=== PATIENT | female | born 1960 | race Asian ===

== ENCOUNTER 2020-12-04 10:10 | Outpatient (REF) | payer OTHER, SELFPAY ==
[2020-12-04 11:45] LABS: MANUAL DIFF FLAG NO
[2020-12-04 12:10] LABS: Basophils Percent Auto 0.7 % (0-2); Eosinophils Absolute Auto 0.3 X10*3/uL (0.0-0.4); Eosinophils Percent Auto 5.8 % (0-4); Hematocrit 42.5 % (37-47); Hemoglobin 14.2 g/dl (12.0-16.0); Imm Gran Abs Auto 0.01 X10*3/uL (0.00-0.03); Imm Gran Pct Auto 0.2 % (0.0-0.4); Lymphocytes Absolute Auto 2.1 X10*3/uL (1.2-4.9); Lymphocytes Percent Auto 37.3 % (20-40); Mean Corpuscular HGB Conc 33.4 g/dl (31.0-35.0); Mean Corpuscular Hemoglobin 30.3 pg (27.0-33.0); Mean Corpuscular Volume 90.6 fL (80-98); Monocytes Absolute Auto 0.4 X10*3/uL (0.1-1.2); Monocytes Percent Auto 7.3 % (2-11); Neutrophils Absolute Auto 2.8 X10*3/uL (2.0-8.3); Neutrophils Percent Auto 48.7 % (45-73); Platelet Count 208 X10*3/uL (160-400); Red Blood Count 4.69 X10*6/uL (4.20-5.50); Red Cell Distribution Width 12.8 % (11.0-16.0); White Blood Count 5.7 X10*3/uL (4.8-10.8)
[2020-12-04 12:20] LABS: Alanine Aminotransferase 52 U/L (0-31); Albumin Level 4.3 g/dL (3.5-5.0); Alkaline Phosphatase 71 U/L (39-117); Anion Gap 11 (12-20); Aspartate Amino Transferase 37 U/L (5-31); Bilirubin Total 1.2 mg/dL (0.0-1.0); Blood Urea Nitrogen 8 mg/dL (9-16); Calcium 10.2 mg/dL (8.4-10.2); Carbon Dioxide 30 mmol/L (22-29); Chloride 105 mmol/L (96-108); Cholesterol 243 mg/dL; Estimated Glomerular Filt Rate > 60; Glucose Fasting 107 mg/dL (60-99); HDL Cholesterol 55 mg/dL; LDL Cholesterol Calculated 165 mg/dl; Potassium 4.2 mmol/L (3.3-5.1); Sodium 142 mmol/L (135-145); Total Protein 6.9 g/dL (6.5-8.0); Triglycerides 119 mg/dL
[2020-12-04 12:30] LABS: TSH reflex Free T4 2.63 uIU/mL (0.32-4.0)
[2020-12-08 21:02] LABS: Vitamin D 25-OH, D2 <4 ng/mL; Vitamin D 25-OH, D3 36 ng/mL; Vitamin D 25-OH, Total 36 ng/mL (30-100)
== END 2020-12-04 10:11 | disposition home or self-care (01) ==
LOC: HO.HMGCLDS 10:10
PROVIDERS: PCP Internal Medicine; Visit Provider Internal Medicine
DX: E55.9 Vitamin D deficiency, unspecified (principal); K21.9 Gastro-esophageal reflux disease without esophagitis; E03.8 Other specified hypothyroidism
CPT/HCPCS: 36415; 80053; 80061; 82306; 84443; 85025

== ENCOUNTER 2021-07-07 11:09 | Outpatient (REF) | payer OTHER, SELFPAY ==
[2021-07-07 14:29] LABS: Estimated Average Glucose 117 mg/dL; Hemoglobin A1C 148.3447 umol/L; Hemoglobin A1c % 5.7 %
[2021-07-07 14:30] LABS: Alanine Aminotransferase 23 U/L (0-31); Albumin Level 4.2 g/dL (3.5-5.0); Alkaline Phosphatase 60 U/L (39-117); Anion Gap 10 (12-20); Aspartate Amino Transferase 17 U/L (5-31); Bilirubin Total 0.9 mg/dL (0.0-1.0); Blood Urea Nitrogen 20 mg/dL (9-16); Calcium 10.3 mg/dL (8.4-10.2); Carbon Dioxide 31 mmol/L (22-29); Chloride 105 mmol/L (96-108); Cholesterol 277 mg/dL; Estimated Glomerular Filt Rate > 60; Glucose Fasting 96 mg/dL (60-99); HDL Cholesterol 55 mg/dL; LDL Cholesterol Calculated 186 mg/dl; Potassium 3.8 mmol/L (3.3-5.1); Sodium 142 mmol/L (135-145); Total Protein 6.9 g/dL (6.5-8.0); Triglycerides 180 mg/dL
[2021-07-07 14:54] LABS: TSH reflex Free T4 0.96 uIU/mL (0.32-4.0)
[2021-07-11 12:46] LABS: Vitamin D 25-OH, D2 <4 ng/mL; Vitamin D 25-OH, D3 31 ng/mL; Vitamin D 25-OH, Total 31 ng/mL (30-100)
== END 2021-07-07 11:10 | disposition home or self-care (01) ==
LOC: HO.HMGCLDS 11:09
PROVIDERS: PCP Internal Medicine; Visit Provider Internal Medicine
DX: E03.8 Other specified hypothyroidism (principal); E78.9 Disorder of lipoprotein metabolism, unspecified; K21.9 Gastro-esophageal reflux disease without esophagitis; R73.03 Prediabetes; R79.89 Other specified abnormal findings of blood chemistry; E55.9 Vitamin D deficiency, unspecified
CPT/HCPCS: 36415; 80053; 80061; 82306; 83036; 84443

== ENCOUNTER 2022-02-15 10:38 | Outpatient (REF) | payer OTHER, SELFPAY ==
[2022-02-15 12:25] LABS: Alanine Aminotransferase 26 U/L (0-31); Albumin Level 4.3 g/dL (3.5-5.0); Alkaline Phosphatase 60 U/L (39-117); Anion Gap 15 (12-20); Aspartate Amino Transferase 21 U/L (5-31); Bilirubin Total 1.3 mg/dL (0.0-1.0); Blood Urea Nitrogen 22 mg/dL (9-16); Calcium 9.7 mg/dL (8.4-10.2); Carbon Dioxide 27 mmol/L (22-29); Chloride 104 mmol/L (96-108); Cholesterol 275 mg/dL; Estimated Glomerular Filt Rate > 60; Glucose Fasting 107 mg/dL (60-99); HDL Cholesterol 60 mg/dL; LDL Cholesterol Calculated 195 mg/dl; Potassium 3.8 mmol/L (3.3-5.1); Sodium 142 mmol/L (135-145); Total Protein 6.8 g/dL (6.5-8.0); Triglycerides 102 mg/dL
[2022-02-15 12:45] LABS: TSH reflex Free T4 1.28 uIU/mL (0.32-4.0)
== END 2022-02-15 10:39 | disposition home or self-care (01) ==
LOC: HO.HMGCLDS 10:38
PROVIDERS: PCP Internal Medicine; Visit Provider Internal Medicine
DX: E03.8 Other specified hypothyroidism (principal); E78.9 Disorder of lipoprotein metabolism, unspecified; E66.09 Other obesity due to excess calories; R79.89 Other specified abnormal findings of blood chemistry; R73.03 Prediabetes
CPT/HCPCS: 36415; 80053; 80061; 84443

== ENCOUNTER 2022-03-30 07:50 | Outpatient (REF) | payer OTHER, SELFPAY | END 2022-03-30 07:51 | disposition home or self-care (01) | LOC: HO.HOSX 07:50 | PROVIDERS: Visit Provider Physician Assistant | DX: Z13.89 Encounter for screening for other disorder (principal) ==

== ENCOUNTER 2022-04-15 10:11 | Outpatient (REF) | payer OTHER, SELFPAY ==
[2022-04-15 15:19] LABS: Estimated Average Glucose 117 mg/dL; Hemoglobin A1c % 5.7 %
[2022-04-15 15:32] LABS: Alanine Aminotransferase 26 U/L (0-31); Albumin Level 4.3 g/dL (3.5-5.0); Alkaline Phosphatase 59 U/L (39-117); Aspartate Amino Transferase 19 U/L (5-31); Bilirubin Direct 0.6 mg/dL (0.0-0.5); Bilirubin Total 1.5 mg/dL (0.0-1.0); Cholesterol 144 mg/dL; HDL Cholesterol 53 mg/dL; LDL Cholesterol Calculated 74 mg/dl; Total Protein 6.7 g/dL (6.5-8.0); Triglycerides 86 mg/dL
== END 2022-04-15 10:12 | disposition home or self-care (01) ==
LOC: HO.HMGCLDS 10:11
PROVIDERS: PCP Internal Medicine; Visit Provider Internal Medicine
DX: R78.9 Finding of unspecified substance, not normally found in blood (principal); R73.03 Prediabetes
CPT/HCPCS: 36415; 80061; 80076; 83036

== ENCOUNTER 2022-10-14 10:19 | Outpatient (REF) | payer OTHER, SELFPAY ==
[2022-10-14 12:10] LABS: Estimated Average Glucose 123 mg/dL; Hemoglobin A1C 149.8522 umol/L; Hemoglobin A1c % 5.9 %
[2022-10-14 12:44] LABS: Alanine Aminotransferase 26 U/L (0-31); Alkaline Phosphatase 61 U/L (39-117); Anion Gap 11 (12-20); Aspartate Amino Transferase 17 U/L (5-31); Blood Urea Nitrogen 19 mg/dL (9-16); Calcium 9.6 mg/dL (8.4-10.2); Carbon Dioxide 28 mmol/L (22-29); Chloride 108 mmol/L (96-108); Cholesterol 173 mg/dL; Estimated Glomerular Filt Rate > 60; Glucose Fasting 92 mg/dL (60-99); HDL Cholesterol 60 mg/dL; LDL Cholesterol Calculated 93 mg/dl; Sodium 143 mmol/L (135-145); TSH reflex Free T4 1.08 uIU/mL (0.32-4.0); Total Protein 6.3 g/dL (6.5-8.0); Triglycerides 102 mg/dL
[2022-10-14 13:02] LABS: Bilirubin Total 1.5 mg/dL (0.0-1.0)
== END 2022-10-14 10:20 | disposition home or self-care (01) ==
LOC: HO.HMGCLDS 10:19
PROVIDERS: PCP Internal Medicine; Visit Provider Internal Medicine
DX: E03.8 Other specified hypothyroidism (principal); K21.9 Gastro-esophageal reflux disease without esophagitis; M25.561 Pain in right knee; M25.562 Pain in left knee; R79.89 Other specified abnormal findings of blood chemistry; E78.9 Disorder of lipoprotein metabolism, unspecified; R73.03 Prediabetes; E66.09 Other obesity due to excess calories
CPT/HCPCS: 36415; 80053; 80061; 83036; 84443

== ENCOUNTER 2023-01-14 13:00 | Outpatient (AMB) | payer OTHER, SELFPAY ==
[2023-01-14 13:01] VITALS: BP 110/58; PULSE 93; O2SAT 95; BMI 41.5
--- NOTE | 2023-01-14 13:01 | MHC.PC.OV ---
Vital Signs 01/14/23 13:01 Height 5 ft 2 in Weight 227 lb BMI 41.5 BP 110/58 L Blood Pressure Location Rt brachial Position Sitting Pulse 93 Pulse Source Pulse Oximeter Pulse Oximetry (%) 95 Oxygen Delivery Method Room Air Intake Visit Reasons: 3m follow up Allergies No Known Allergies [No Known Allergies*] Allergy (Verified 01/14/23 13:02) Medication List - Last Reconciled 01/14/23 by Brielle Alfaro MD atorvastatin 40 mg PO DAILY 90 days betamethasone dipropionate 0.05% 1 appl topical DAILY 90 days cholecalciferol (vitamin D3) 50 mcg PO DAILY diclofenac sodium 3% 1 appl topical BID 30 days hydrocortisone 2.5% 1 appl topical BID PRN levothyroxine 100 mcg PO DAILY 90 days Tobacco use date assessed: 01/14/23 Dental Screening Dental Screen Date: 01/14/23 Did you have a dental visit in the last 12 months?: No Did you have a dental problem in the last 6 months where you did not have access to dental care?: No Was dental information given to patient?: No HPI 3m follow up HPI Details Patient is a 62-year-old female came in today for her regular follow-up appointment Patient had shingles recently she is still recovering, was evaluated walk-in clinic and was treated with medication Lipid disorder: Patient continued to take atorvastatin 40 mg lipids are well controlled due for labs Hypothyroidism: Continue levothyroxine 100 mcg. TSH is within normal limit Bilateral knee osteoarthritis: Ibuprofen as needed or Tylenol, patient is using diclofenac 3% local rub which is helping her Continue vitamin-D supplement as well. GERD is stable with diet-controlled Eczema controlled with betamethasone cream She is complaining of pain in her right foot and is requesting appointment with the certified surgical tech/first assistant Patient has gained more weight, diet and exercise discussed Follow-up 3 months, [facility] Social History Housing: House Patient Tobacco Use Status: Never used Tobacco e-Cigarette/Vaping Use: Never Used Current occupational status: unemployed Cognitive needs: No Hearing needs: No Vision needs: No Questionnaire Thrive Questionnaire Date Thrive assessed: 07/07/21 AUDIT C Alcohol Use Questionnaire (AUDIT-C) 1. How often do you have a drink containing alcohol?: Never 3. How often do you have six or more drinks on one occasion?: Never Total Score: 0 Score Reviewed/Action Taken: Yes MARGARITO-7 AMB Questionnaire MARGARITO-7 Date MARGARITO - 7 assessed: 07/07/21 Source: Developed by Drs. Shahzad Millan, Jaimee Shetty, Dominick Pedraza and colleagues, with an educational nic from [employer]. Review of Systems Const Denies chills and Denies fever(s) ENT Denies epistaxis and Denies nasal discharge Card Denies chest pain Resp Denies chest congestion, Denies cough and Denies hemoptysis GI Denies diarrhea and Denies nausea Skin/Breast Denies rash Neuro Reports no additional complaints Psych Reports no additional complaints Endo Reports no additional complaints Physical exam (Primary Care) Vital Signs: Last Vital Signs Pulse 93 01/14/23 13:01 BP 110/58 L 01/14/23 13:01 Pulse Ox 95 01/14/23 13:01 Oxygen Delivery Method Room Air 01/14/23 13:01 BMI result Body Mass Index 41.5 Tobacco/Smoking Status: Tobacco use Status Tobacco use date assessed 01/14/23 01/14/23 13:06 Patient Tobacco Use Status Never used Tobacco 01/14/23 13:06 e-Cigarette/Vaping Use Never Used 01/14/23 13:06 Thrive Assessment: Date of Thrive Assessment Date Thrive assessed 07/07/21 01/14/23 13:06 Const General: cooperative, comfortable and no acute distress Orientation/consciousness: patient oriented x3 HENMT Head: Yes normocephalic Eyes General: appearance normal, both eyes and all related structures Neck Neck: Yes supple Resp Effort & Inspection: normal respiratory effort, no cough and no stridor Cardio Rhythm: regular rhythm Heart sounds: S1 normal heart sound present and S2 normal heart sound present Skin Other: Shingles rash resolving left side of upper chest General skin exam: turgor normal Neuro General: patient oriented x3, tone normal and moves all extremities Extrem Right lower extremity: no edema Left lower extremity: no edema Assessment and Plan Assessment & Plan (1) Other specified hypothyroidism: Code(s): E03.8 - Other specified hypothyroidism (2) Chronic GERD: Code(s): K21.9 - Gastro-esophageal reflux disease without esophagitis (3) Vitamin D deficiency: Code(s): E55.9 - Vitamin D deficiency, unspecified (4) Knee pain, bilateral: Code(s): M25.561 - Pain in right knee; M25.562 - Pain in left knee (5) LFT elevation: Code(s): R79.89 - Other specified abnormal findings of blood chemistry (6) Pre-diabetes: Code(s): R73.03 - Prediabetes (7) Lipid disorder: Code(s): E78.9 - Disorder of lipoprotein metabolism, unspecified (8) Obesity due to excess calories: Code(s): E66.09 - Other obesity due to excess calories (9) Foot pain, right: Code(s): M79.671 - Pain in right foot (10) Herpes zoster: Code(s): B02.9 - Zoster without complications Plan Patient is a 62-year-old female came in today for her regular follow-up appointment Patient had shingles recently she is still recovering, was evaluated walk-in clinic and was treated with medication Lipid disorder: Patient continued to take atorvastatin 40 mg lipids are well controlled due for labs Hypothyroidism: Continue levothyroxine 100 mcg. TSH is within normal limit Bilateral knee osteoarthritis: Ibuprofen as needed or Tylenol, patient is using diclofenac 3% local rub which is helping her Continue vitamin-D supplement as well. GERD is stable with diet-controlled Eczema controlled with betamethasone cream She is complaining of pain in her right foot and is requesting appointment with the certified surgical tech/first assistant Patient has gained more weight, diet and exercise discussed Follow-up 3 months Orders: Orders Comprehensive [place]. Panel Fast Today E03.8 - Other specified hypothyroidism, E55.9 - Vitamin D deficiency, unspecified, E66.09 - Other obesity due to excess calories, E78.9 - Disorder of lipoprotein metabolism, unspecified, K21.9 - Gastro-esophageal reflux disease without esophagitis, M25.561 - Pain in right knee, M25.562 - Pain in left knee, R73.03 - Prediabetes, R79.89 - Other specified abnormal findings of blood chemistry Lipid Panel Today E03.8 - Other specified hypothyroidism, E55.9 - Vitamin D deficiency, unspecified, E66.09 - Other obesity due to excess calories, E78.9 - Disorder of lipoprotein metabolism, unspecified, K21.9 - Gastro-esophageal reflux disease without esophagitis, M25.561 - Pain in right knee, M25.562 - Pain in left knee, R73.03 - Prediabetes, R79.89 - Other specified abnormal findings of blood chemistry TSH reflex Free T4 Today E03.8 - Other specified hypothyroidism, E55.9 - Vitamin D deficiency, unspecified, E66.09 - Other obesity due to excess calories, E78.9 - Disorder of lipoprotein metabolism, unspecified, K21.9 - Gastro-esophageal reflux disease without esophagitis, M25.561 - Pain in right knee, M25.562 - Pain in left knee, R73.03 - Prediabetes, R79.89 - Other specified abnormal findings of blood chemistry Complete Blood Count Auto Diff Today E03.8 - Other specified hypothyroidism, E55.9 - Vitamin D deficiency, unspecified, E66.09 - Other obesity due to excess calories, E78.9 - Disorder of lipoprotein metabolism, unspecified, K21.9 - Gastro-esophageal reflux disease without esophagitis, M25.561 - Pain in right knee, M25.562 - Pain in left knee, R73.03 - Prediabetes, R79.89 - Other specified abnormal findings of blood chemistry Referrals Podiatry Referral M79.671 - Pain in right foot Medications: Refilled levothyroxine 100 mcg PO DAILY 90 days 90 tabs 1RF betamethasone dipropionate 0.05% 1 appl topical DAILY 90 days 45 grams 2RF atorvastatin 40 mg PO DAILY 90 days 90 tabs 1RF cholecalciferol (vitamin D3) 50 mcg PO DAILY 90 caps 1RF diclofenac sodium 3% 1 appl topical BID 30 days 200 grams 5RF Coding Level of Care Code Est Pt Level 4 (63022) Diagnoses Other specified hypothyroidism E03.8 Chronic GERD K21.9 Vitamin D deficiency E55.9 Knee pain, bilateral M25.561; M25.562 LFT elevation R79.89 Pre-diabetes R73.03 Lipid disorder E78.9 Obesity due to excess calories E66.09 Foot pain, right M79.671 Herpes zoster B02.9
== END 2023-01-14 14:20 | disposition home or self-care (01) ==
PROVIDERS: Visit Provider Internal Medicine
DX: E03.8 Other specified hypothyroidism (principal); K21.9 Gastro-esophageal reflux disease without esophagitis; E66.09 Other obesity due to excess calories; Z68.41 Body mass index [BMI] 40.0-44.9, adult; E55.9 Vitamin D deficiency, unspecified; M25.561 Pain in right knee; M25.562 Pain in left knee; R79.89 Other specified abnormal findings of blood chemistry; R73.03 Prediabetes; E78.9 Disorder of lipoprotein metabolism, unspecified; M79.671 Pain in right foot; B02.9 Zoster without complications
CPT/HCPCS: 99214

== ENCOUNTER 2023-04-19 11:29 | Outpatient (REF) | payer OTHER, SELFPAY ==
[2023-04-19 13:40] LABS: MANUAL DIFF FLAG NO
[2023-04-19 13:53] LABS: Basophils Percent Auto 0.8 % (0-2); Eosinophils Absolute Auto 0.3 X10*3/uL (0.0-0.4); Eosinophils Percent Auto 6.4 % (0-4); Hematocrit 42.6 % (37.0-47.0); Hemoglobin 13.8 g/dl (12.0-16.0); Imm Gran Abs Auto 0.01 X10*3/uL (0.00-0.03); Imm Gran Pct Auto 0.2 % (0.0-0.4); Lymphocytes Absolute Auto 1.8 X10*3/uL (1.2-4.9); Lymphocytes Percent Auto 35.2 % (20-40); Mean Corpuscular HGB Conc 32.4 g/dl (31.0-35.0); Mean Corpuscular Hemoglobin 29.9 pg (27.0-33.0); Mean Corpuscular Volume 92.2 fL (80.0-98.0); Mean Platelet Volume 10.7 fL (9.4-12.3); Monocytes Absolute Auto 0.4 X10*3/uL (0.1-1.2); Monocytes Percent Auto 7.8 % (2-11); Neutrophils Absolute Auto 2.5 x10*3/uL (2.0-8.3); Neutrophils Percent Auto 49.6 % (45-73); Platelet Count 186 X10*3/uL (160-400); Red Blood Count 4.62 X10*6/uL (4.20-5.50); Red Cell Distribution Width 12.8 % (11.0-16.0)
[2023-04-19 14:15] LABS: Anion Gap 14 (12-20)
[2023-04-19 14:21] LABS: Alanine Aminotransferase 24 U/L (0-31); Albumin Level 4.2 g/dL (3.5-5.0); Alkaline Phosphatase 64 U/L (39-117); Aspartate Amino Transferase 22 U/L (5-31); Bilirubin Total 1.5 mg/dL (0.0-1.0); Blood Urea Nitrogen 12 mg/dL (9-16); Calcium 10.3 mg/dL (8.4-10.2); Carbon Dioxide 27 mmol/L (22-29); Chloride 105 mmol/L (96-108); Cholesterol 169 mg/dL (<200); Estimated Glomerular Filt Rate > 60; Glucose Fasting 100 mg/dL (60-99); HDL Cholesterol 48 mg/dL (>40); LDL Cholesterol Calculated 85 mg/dL (<100); Potassium 3.7 mmol/L (3.3-5.1); Sodium 142 mmol/L (135-145); Total Protein 6.9 g/dL (6.5-8.0); Triglycerides 180 mg/dL (<150)
[2023-04-19 14:29] LABS: TSH reflex Free T4 4.17 uIU/mL (0.32-4.0)
[2023-04-19 15:01] LABS: Free T4 (Free Thyroxine) 1.03 ng/dL (0.71-1.85)
== END 2023-04-19 11:30 | disposition home or self-care (01) ==
LOC: HO.HMGCLDS 11:29
PROVIDERS: PCP Internal Medicine; Visit Provider Internal Medicine
DX: E03.8 Other specified hypothyroidism (principal); K21.9 Gastro-esophageal reflux disease without esophagitis; E55.9 Vitamin D deficiency, unspecified; M25.561 Pain in right knee; M25.562 Pain in left knee; R79.89 Other specified abnormal findings of blood chemistry; R73.03 Prediabetes; E78.9 Disorder of lipoprotein metabolism, unspecified; E66.09 Other obesity due to excess calories
CPT/HCPCS: 36415; 80053; 80061; 84439; 84443; 85025

== ENCOUNTER 2023-04-20 09:23 | Outpatient (AMB) | payer OTHER, SELFPAY ==
[2023-04-20 09:28] VITALS: BP 124/76; PULSE 81; O2SAT 97; BMI 41.7
--- NOTE | 2023-04-20 09:28 | A.OFFPC_ITS ---
Vital Signs 04/20/23 09:28 Height 5 ft 2 in Weight 228 lb 4 oz BMI 41.7 BP 124/76 Blood Pressure Location Lt brachial Position Sitting Pulse 81 Pulse Source Pulse Oximeter Pulse Oximetry (%) 97 Oxygen Delivery Method Room Air Intake Visit Reasons: PE Allergies No Known Allergies [No Known Allergies*] Allergy (Verified 04/20/23 09:30) Medication List - Last Reconciled 04/20/23 by Brielle Alfaro MD atorvastatin 40 mg PO DAILY 90 days betamethasone dipropionate 0.05% 1 appl topical DAILY 90 days cholecalciferol (vitamin D3) 50 mcg PO DAILY diclofenac sodium 3% 1 appl topical BID 30 days hydrocortisone 2.5% 1 appl topical BID PRN levothyroxine 100 mcg PO DAILY 90 days Tobacco use date assessed: 04/20/23 Dental Screening Dental Screen Date: 04/20/23 Did you have a dental visit in the last 12 months?: No Did you have a dental problem in the last 6 months where you did not have access to dental care?: No Was dental information given to patient?: Patient has dentist HPI PE HPI Details Patient is a 62-year-old female came in today for her physical exam Mammogram is due order placed Patient declined colonoscopy Declined OBGYN visit and Pap smear Patient is complaining of memory issues has started to forget small things. Her daughter is here with the patient who also has noticed there is some changes. I have book appointment with the neurologist for further evaluation Lipid disorder: Continue atorvastatin 40 mg Hypothyroidism: Continue levothyroxine 100 mcg. TSH is slightly elevated, patie nt says that she is taking [id number] remedy for thyroid she will stop taking that and we will recheck it again in 3 months Bilateral knee osteoarthritis: Ibuprofen as needed or Tylenol, patient is using diclofenac 3% local rub which is helping her Continue vitamin-D supplement as well. GERD is stable with diet-controlled Eczema controlled with betamethasone cream Morbid obesity with BMI of 41.7 patient is having difficulty losing weight [facility] Social History Housing: House Patient Tobacco Use Status: Never used Tobacco e-Cigarette/Vaping Use: Never Used Current occupational status: unemployed Cognitive needs: No Hearing needs: No Vision needs: No Questionnaire PHQ-9 Over the last 2 weeks, how often have you been bothered by any of the following problems? 1. Little interest or pleasure in doing things: several days 2. Feeling down, depressed, or hopeless: several days 3. Trouble falling or staying asleep, or sleeping too much: several days 4. Feeling tired or having little energy: several days 5. Poor appetite or overeating: several days 6. Feeling bad about yourself - or that you are a failure or have let yourself or your family down: several days 7. Trouble concentrating on things, such as reading the newspaper or watching television: nearly every day 8. Moving or speaking so slowly that other people could have noticed. Or the o pposite - being so fidgety or restless that you have been moving around a lot more than usual: not at all 9. Thoughts that you would be better off or of hurting yourself in some way: not at all Total score: 9 Depression Screening Interpretation: Negative Depression Screening Done: Yes 28447 - PHQ-9 Billing: Yes Source: Developed by Drs. Shahzad Millan, Jaimee Shetty, Dominick Pedraza and colleagues, with an educational nic from [employer]. Thrive Questionnaire Date Thrive assessed: 04/20/23 I am a: Patient What is your living situation today?: I have a steady place to live Within the past 12 months, did the food you bought not last and you didn't have the money to get more?: Never true Within the past 12 months, did you worry whether your food would run out before you got money to buy more?: Never true Do you have trouble paying for medicines?: No Do you have trouble getting transportation to medical appointments?: No Do you have trouble paying your heating and electricity bill?: No Do you have trouble taking care of your child, family member or friend?: No Do you have trouble with day-to-day activities such as bathing, preparing meals, shopping, managing finances, etc.?: Yes Are you currently unemployed and looking for a job?: No Are you interested in more education?: Yes AUDIT C Alcohol Use Questionnaire (AUDIT-C) 1. How often do you have a drink containing alcohol?: Never 3. How often do you have six or more drinks on one occasion?: Never Total Score: 0 Score Reviewed/Action Taken: Yes MARGARITO-7 AMB Questionnaire MARGARITO-7 Date MARGARITO - 7 assessed: 04/20/23 Feeling nervous, anxious, or on edge: 0 = Not at all Not being able to stop or control worryin = Several days Worrying too much about different things: 1 = Several days Trouble relaxin = Not at all Being so restless that it is hard to sit still: 0 = Not at all Becoming easily annoyed or irritable: 0 = Not at all Feeling afraid as if something awful might happen: 0 = Not at all Total MARGARITO-7 score (0-4 normal; 5-9 mild; 10-14 moderate; 15-21 severe): 2 Source: Developed by Drs. Shahzad Millan, Jaimee Shetty, Dominick Pedraza and colleagues, with an educational nic from [employer]. MARGARITO-7 Assessment Billing MARGARITO-7 Assessment Tool: MARGARITO-7 Assessment [id number] Review of Systems Const Denies chills, Denies fever(s) and Denies headache(s) Eyes Denies blurry vision ENT Denies headache(s), Denies nasal discharge, Denies nasal obstruction, Denies odynophagia and Denies sinus pain Card Denies chest pain at rest and Denies chest pain with activity Resp Denies cough and Denies hemoptysis GI Denies diarrhea, Denies odynophagia, Denies vomiting and Denies hematemesis Reports as per HPI Musc Denies abnormal gait Skin/Breast Reports as per HPI Neuro Denies Neuro-related abnormal movements, Denies Abnormal speech present, Denies abnormal gait, Denies headache(s) and Denies Sensory deficit (Neuro) Psych Denies mood swings and Denies paranoia Endo Reports as per HPI Uriah/Lymph Reports as per HPI Aller/Immun Reports as per HPI Physical exam (Primary Care) Vital Signs: Last Vital Signs Pulse 81 04/20/23 09:28 BP 124/76 04/20/23 09:28 Pulse Ox 97 04/20/23 09:28 Oxygen Delivery Method Room Air 04/20/23 09:28 BMI result Body Mass Index 41.7 Tobacco/Smoking Status: Tobacco use Status Tobacco use date assessed 04/20/23 04/20/23 09:31 Patient Tobacco Use Status Never used Tobacco 04/20/23 09:31 e-Cigarette/Vaping Use Never Used 04/20/23 09:31 PHQ-9: PHQ-9 Score PHQ-9: Total score 9 04/20/23 09:57 Depression Screening Interpretation: Negative Thrive Assessment: Date of Thrive Assessment Date Thrive assessed 04/20/23 04/20/23 09:57 Const General: cooperative, comfortable and no acute distress Orientation/consciousness: patient oriented x3 HENMT Head: Yes normocephalic and Yes atraumatic Eyes General: appearance normal, both eyes and all related structures Pupils: Equal, round and reactive pupils present EOM: EOMs intact bilaterally Neck Neck: Yes supple and No lymphadenopathy Thyroid: Thyroid normal Lymphatic: no lymphadenopathy noted Chest Breast/axilla palpation: normal palpation of the breasts Resp Effort & Inspection: normal respiratory effort and able to speak in complete sentences Auscultation: clear to auscultation bilaterally Cardio Heart sounds: S1 normal heart sound present and S2 normal heart sound present GI Palpation (GI): Soft to palpation and nontender Auscultation: normal bowel sounds General: Yes no CVA tenderness Back/Spine/Pelvis Back: no CVA tenderness Skin General skin exam: elasticity normal and turgor normal Neuro General: patient oriented x3 and gait normal Cranial nerves: Yes Equal, round and reactive pupils present Speech: No Abnormal speech present Sensory Exam: No Sensory deficit (Neuro) Coordination: Romberg test negative Extrem General: Yes normal exam except as noted and No edema Assessment and Plan Assessment & Plan (1) Encounter for general adult medical examination with abnormal findings: Code(s): Z00.01 - Encounter for general adult medical examination with abnormal findings (2) Lipid disorder: Code(s): E78.9 - Disorder of lipoprotein metabolism, unspecified (3) Pre-diabetes: Code(s): R73.03 - Prediabetes (4) Chronic GERD: Code(s): K21.9 - Gastro-esophageal reflux disease without esophagitis (5) Other specified hypothyroidism: Code(s): E03.8 - Other specified hypothyroidism (6) Morbid obesity due to excess calories: Code(s): E66.01 - Morbid (severe) obesity due to excess calories (7) Memory changes: Code(s): R41.3 - Other amnesia Plan Patient is a 62-year-old female came in today for her physical exam Mammogram is due order placed Patient declined colonoscopy Declined OBGYN visit and Pap smear Patient is complaining of memory issues has started to forget small things. Her daughter is here with the patient who also has noticed there is some changes. I have book appointment with the neurologist for further evaluation Lipid disorder: Continue atorvastatin 40 mg Hypothyroidism: Continue levothyroxine 100 mcg. TSH is slightly elevated, patient says that she is taking vtri-anq-[id number] remedy for thyroid she will stop taking that and we will recheck it again in 3 months Bilateral knee osteoarthritis: Ibuprofen as needed or Tylenol, patient is using diclofenac 3% local rub which is helping her Continue vitamin-D supplement as well. GERD is stable with diet-controlled Eczema controlled with betamethasone cream Morbid obesity with BMI of 41.7 patient is having difficulty losing weight Orders: Orders TSH reflex Free T4 3 Months E03.8 - Other specified hypothyroidism, E66.01 - Morbid (severe) obesity due to excess calories, E78.9 - Disorder of lipoprotein metabolism, unspecified, K21.9 - Gastro-esophageal reflux disease without esophagitis, R73.03 - Prediabetes Hemoglobin A1c Today E03.8 - Other specified hypothyroidism, E66.01 - Morbid (severe) obesity due to excess calories, E78.9 - Disorder of lipoprotein metabolism, unspecified, K21.9 - Gastro-esophageal reflux disease without esophagitis, R73.03 - Prediabetes Comprehensive Met. Panel Today E03.8 - Other specified hypothyroidism, E66.01 - Morbid (severe) obesity due to excess calories, E78.9 - Disorder of lipoprotein metabolism, unspecified, K21.9 - Gastro-esophageal reflux disease without esophagitis, R73.03 - Prediabetes LDL Cholesterol Direct Today E03.8 - Other specified hypothyroidism, E66.01 - Morbid (severe) obesity due to excess calories, E78.9 - Disorder of lipoprotein metabolism, unspecified, K21.9 - Gastro-esophageal reflux disease without esophagitis, R73.03 - Prediabetes MM tomosynthesis screening BI Today Z12.31 - Encounter for screening mammogram for malignant neoplasm of breast Referrals Neurology Referral R41.3 - Other amnesia Medications: Refilled diclofenac sodium 3% 1 appl topical BID 200 grams 5RF 30 days hydrocortisone 2.5% 1 appl topical BID PRN 20 grams 6RF skin irritation Coding Level of Care Code Est Pt Prev Care 40-64y(81283) Diagnoses Encounter for general adult medical examination with abnormal findings Z00.01 Lipid disorder E78.9 Pre-diabetes R73.03 Chronic GERD K21.9 Other specified hypothyroidism E03.8 Morbid obesity due to excess calories E66.01 Memory changes R41.3 Additional Codes MARGARITO-7 Assessment Billing - MARGARITO-7 Assessment Tool: MARGARITO-7 Assessment [id number] ([id number])
== END 2023-04-20 10:00 | disposition home or self-care (01) ==
PROVIDERS: PCP Internal Medicine; Visit Provider Internal Medicine
DX: Z00.00 Encounter for general adult medical examination without abnormal findings (principal); E66.01 Morbid (severe) obesity due to excess calories; Z68.41 Body mass index [BMI] 40.0-44.9, adult; E78.9 Disorder of lipoprotein metabolism, unspecified; R73.03 Prediabetes; K21.9 Gastro-esophageal reflux disease without esophagitis; E03.8 Other specified hypothyroidism; R41.3 Other amnesia
CPT/HCPCS: 99396

== ENCOUNTER 2023-08-24 13:51 | Outpatient (AMB) | payer OTHER, SELFPAY ==
[2023-08-24 13:53] VITALS: BP 106/50; PULSE 96; O2SAT 95; BMI 41.9
--- NOTE | 2023-08-24 13:53 | A.OFFPC_ITS ---
Vital Signs 3 08/24/23 13:53 Height 5 ft 2 in Weight 229 lb BMI 41.9 BP 106/50 L Blood Pressure Location Rt brachial Position Sitting Pulse 96 Pulse Source Pulse Oximeter Pulse Oximetry (%) 95 Oxygen Delivery Method Room Air Intake Visit Reasons: 3 month fu ( Meds ) Allergies No Known Allergies [No Known Allergies*] Allergy (Verified 08/24/23 13:53) Medication List - Last Reconciled 08/24/23 by Brielle Alfaro MD atorvastatin 40 mg PO DAILY 90 days cholecalciferol (vitamin D3) 50 mcg PO DAILY levothyroxine 100 mcg PO DAILY 90 days Tobacco use date assessed: 08/24/23 Fall risk assessment: No Falls in past year Last assessed Fall Risk: 08/24/23 Dental Screening Dental Screen Date: 08/24/23 Did you have a dental visit in the last 12 months?: No Did you have a dental problem in the last 6 months where you did not have access to dental care?: No Was dental information given to patient?: No HPI 3 month fu ( Meds ) 2 HPI0 Details Patient is a 62-year-old female came in today for her follow-up appointment Patient is complaining of memory issues has started to forget small things. Her daughter is here with the patient who also has noticed there is some changes. I placed appointment request with Neurology last visit, patient says that they still have not appointment, I given them telephone number to call and they own appointment She is also complaining of pain at the bottom of her right foot and is having difficulty walking she says that it has started on the left side as well Patient would like to see a machine room operator Her hair is falling for few months now, patient would like to see a inspector clip on sunglasses On examination I do not see any scalp conditions to cause here following, most likely hormonal changes after the menopause Lipid disorder: Continue atorvastatin 40 mg Hypothyroidism: Continue levothyroxine 100 mcg. TSH need to be checked again Bilateral knee osteoarthritis: Ibuprofen as needed or Tylenol, patient is using diclofenac 3% local rub which is helping her She is requesting renewal of her handicap placard which I have Continue vitamin-D supplement as well. GERD is stable with diet-controlled Eczema controlled with betamethasone cream Morbid obesity with BMI of 41.9 patient is having difficulty losing weight PFSH Social History Housing: House Patient Tobacco Use Status: Never used Tobacco e-Cigarette/Vaping Use: Never Used service: No Current occupational status: unemployed Cognitive needs: No Hearing needs: No Vision needs: No Questionnaire PHQ-9 Over the last 2 weeks, how often have you been bothered by any of the following problems? 1. Little interest or pleasure in doing things: not at all 2. Feeling down, depressed, or hopeless: not at all 3. Trouble falling or staying asleep, or sleeping too much: not at all 4. Feeling tired or having little energy: several days 5. Poor appetite or overeating: not at all 6. Feeling bad about yourself - or that you are a failure or have let yourself or your family down: not at all 7. Trouble concentrating on things, such as reading the newspaper or watching television: not at all 8. Moving or speaking so slowly that other people could have noticed. Or the opposite - being so fidgety or restless that you have been moving around a lot more than usual: several days 9. Thoughts that you would be better off or of hurting yourself in some way: not at all Total score: 2 Depression Screening Interpretation: Negative Depression Screening Done: Yes 52469 - PHQ-9 Billing: Yes Source: Developed by Drs. Shahzad Millan, Jaimee Shetty, Dominick Pedraza and colleagues, with an educational nic from [employer]. Thrive Questionnaire Date Thrive assessed: 08/24/23 I am a: Patient What is your living situation today?: I have a steady place to live Within the past 12 months, did the food you bought not last and you didn't have the money to get more?: Never true Within the past 12 months, did you worry whether your food would run out before you got money to buy more?: Never true Do you have trouble paying for medicines?: No Do you have trouble getting transportation to medical appointments?: No Do you have trouble paying your heating and electricity bill?: No Do you have trouble taking care of your child, family member or friend?: No Do you have trouble with day-to-day activities such as bathing, preparing meals, shopping, managing finances, etc.?: Yes Are you currently unemployed and looking for a job?: No Are you interested in more education?: No Please select the resources that you would like help with: None Currently or been in a relationship where the following occur: no concerns reported THRIVE Score: 0 AUDIT C Alcohol Use Questionnaire (AUDIT-C) 1. How often do you have a drink containing alcohol?: Never 3. How often do you have six or more drinks on one occasion?: Never Total Score: 0 Score Reviewed/Action Taken: Yes MARGARITO-7 AMB Questionnaire MARGARITO-7 Date MARGARITO - 7 assessed: 08/24/23 Feeling nervous, anxious, or on edge: 0 = Not at all Not being able to stop or control worryin = Not at all Worrying too much about different things: 0 = Not at all Trouble relaxin = Not at all Being so restless that it is hard to sit still: 0 = Not at all Becoming easily annoyed or irritable: 0 = Not at all Feeling afraid as if something awful might happen: 0 = Not at all Total MARGARITO-7 score (0-4 normal; 5-9 mild; 10-14 moderate; 15-21 severe): 0 Source: Developed by Drs. Shahzad Millan, Jaimee Shetty, Dominick Pedraza and colleagues, with an educational nic from [employer]. MARGARITO-7 Assessment Billing MARGARITO-7 Assessment Tool: MARGARITO-7 Assessment 23657 Review of Systems Const Denies chills and Denies fever(s) ENT Denies epistaxis and Denies nasal discharge Card Denies chest pain Resp Denies chest congestion, Denies cough and Denies hemoptysis GI Denies diarrhea and Denies nausea Skin/Breast Denies rash Neuro Reports no additional complaints Psych Reports no additional complaints Endo Reports no additional complaints Physical exam (Primary Care) Vital Signs: Last Vital Signs Pulse 96 08/24/23 13:53 BP 106/50 L 08/24/23 13:53 Pulse Ox 95 08/24/23 13:53 Oxygen Delivery Method Room Air 08/24/23 13:53 BMI result Body Mass Index 41.9 Tobacco/Smoking Status: Tobacco use Status Tobacco use date assessed 08/24/23 08/24/23 14:00 Patient Tobacco Use Status Never used Tobacco 08/24/23 14:00 e-Cigarette/Vaping Use Never Used 08/24/23 14:00 Depression Screening Interpretation: Negative Thrive Assessment: Date of Thrive Assessment Date Thrive assessed 04/20/23 08/24/23 14:00 Currently or been in a relationship where the following occur: no concerns reported Const General: cooperative, comfortable and no acute distress Orientation/consciousness: patient oriented x3 HENMT Head: Yes normocephalic Eyes General: appearance normal, both eyes and all related structures Resp Effort & Inspection: normal respiratory effort, no cough and no stridor Cardio Rhythm: regular rhythm Heart sounds: S1 normal heart sound present and S2 normal heart sound present Skin General skin exam: turgor normal Neuro General: patient oriented x3, tone normal and moves all extremities Extrem Right lower extremity: no edema Left lower extremity: no edema Ankle/foot/toe images: 2 1. Site of pain with pressure, no skin changes, able to move toes without any pain, dorsalis pedis pulse +bilateral Assessment and Plan Assessment & Plan (1) Other specified hypothyroidism: Code(s): E03.8 - Other specified hypothyroidism (2) Bilateral foot pain: Code(s): M79.671 - Pain in right foot; M79.672 - Pain in left foot (3) Chronic GERD: Code(s): K21.9 - Gastro-esophageal reflux disease without esophagitis (4) Falling hair: Code(s): L65.9 - Nonscarring hair loss, unspecified (5) Memory changes: Code(s): R41.3 - Other amnesia (6) Knee pain, bilateral: Code(s): M25.561 - Pain in right knee; M25.562 - Pain in left knee Qualifiers: Chronicity: acute Qualified Code(s): M25.561 - Pain in right knee; M25.562 - Pain in left knee (7) LFT elevation: Code(s): R79.89 - Other specified abnormal findings of blood chemistry (8) Pre-diabetes: Code(s): R73.03 - Prediabetes (9) Lipid disorder: Code(s): E78.9 - Disorder of lipoprotein metabolism, unspecified (10) Morbid obesity due to excess calories: Code(s): E66.01 - Morbid (severe) obesity due to excess calories Plan Patient is a 62-year-old female came in today for her follow-up appointment Patient is complaining of memory issues has started to forget small things. Her daughter is here with the patient who also has noticed there is some changes. I placed appointment request with Neurology last visit, patient says that they still have not appointment, I given them telephone number to call and they own appointment She is also complaining of pain at the bottom of her right foot and is having difficulty walking she says that it has started on the left side as well Patient would like to see a machine room operator Her hair is falling for few months now, patient would like to see a inspector clip on sunglasses On examination I do not see any scalp conditions to cause here following, most likely hormonal changes after the menopause Lipid disorder: Continue atorvastatin 40 mg Hypothyroidism: Continue levothyroxine 100 mcg. TSH need to be checked again Bilateral knee osteoarthritis: Ibuprofen as needed or Tylenol, patient is using diclofenac 3% local rub which is helping her She is requesting renewal of her handicap placard which I have Continue vitamin-D supplement as well. GERD is stable with diet-controlled Eczema controlled with betamethasone cream Morbid obesity with BMI of 41.9 patient is having difficulty losing weight Orders: Orders 2 LDL Cholesterol Direct Today E03.8 - Other specified hypothyroidism, E66.01 - Morbid (severe) obesity due to excess calories, E78.9 - Disorder of lipoprotein metabolism, unspecified, K21.9 - Gastro-esophageal reflux disease without esophagitis, M25.561 - Pain in right knee, M25.562 - Pain in left knee, R73.03 - Prediabetes, R79.89 - Other specified abnormal findings of blood chemistry TSH reflex Free T4 Today E03.8 - Other specified hypothyroidism, E66.01 - Morbid (severe) obesity due to excess calories, E78.9 - Disorder of lipoprotein metabolism, unspecified, K21.9 - Gastro-esophageal reflux disease without esophagitis, M25.561 - Pain in right knee, M25.562 - Pain in left knee, R73.03 - Prediabetes, R79.89 - Other specified abnormal findings of blood chemistry XR foot RT 2V Today M79.671 - Pain in right foot, M79.672 - Pain in left foot Comprehensive Met. Panel Today E03.8 - Other specified hypothyroidism, E66.01 - Morbid (severe) obesity due to excess calories, E78.9 - Disorder of lipoprotein metabolism, unspecified, K21.9 - Gastro-esophageal reflux disease without esophagitis, M25.561 - Pain in right knee, M25.562 - Pain in left knee, R73.03 - Prediabetes, R79.89 - Other specified abnormal findings of blood chemistry Hemoglobin A1c Today R73.03 - Prediabetes XR foot LT 2V Today M79.671 - Pain in right foot, M79.672 - Pain in left foot Referrals 2 Dermatology Referral L65.9 - Nonscarring hair loss, unspecified Podiatry Referral M79.671 - Pain in right foot, M79.672 - Pain in left foot Coding Level of Care Code Est Pt Level 4 (81411) Diagnoses Other specified hypothyroidism E03.8 Bilateral foot pain M79.671; M79.672 Chronic GERD K21.9 Falling hair L65.9 Memory changes R41.3 Acute pain of both knees M25.561; M25.562 Chronicity: acute LFT elevation R79.89 Pre-diabetes R73.03 Lipid disorder E78.9 Morbid obesity due to excess calories E66.01 Additional Codes MARGARITO-7 Assessment Billing - MARGARITO-7 Assessment Tool: MARGARITO-7 Assessment 00225 ([id number])
== END 2023-08-24 14:23 | disposition home or self-care (01) ==
PROVIDERS: PCP Internal Medicine; Visit Provider Internal Medicine
DX: E03.8 Other specified hypothyroidism (principal); M79.671 Pain in right foot; E66.01 Morbid (severe) obesity due to excess calories; Z68.41 Body mass index [BMI] 40.0-44.9, adult; M79.672 Pain in left foot; K21.9 Gastro-esophageal reflux disease without esophagitis; L65.9 Nonscarring hair loss, unspecified; R41.3 Other amnesia; M25.561 Pain in right knee; M25.562 Pain in left knee; R79.89 Other specified abnormal findings of blood chemistry; R73.03 Prediabetes
CPT/HCPCS: 99214

== ENCOUNTER 2023-08-24 14:24 | Outpatient (REF) | payer OTHER, SELFPAY ==
--- NOTE | ~2023-08-24 | XR_ITS ---
EXAMINATION: XR FOOT, RIGHT CLINICAL INFORMATION: Right-sided pain COMPARISON: None available. TECHNIQUE: AP, lateral, and oblique views of the right foot. FINDINGS: Diffuse osteopenia. Joint spaces preserved. No erosive change. No fracture, dislocation, or destructive process. There is mild productive change, at the first MTP joint. There are prominent spurs off the posterior calcaneus, at the respective insertions of the Achilles tendon and plantar fascia. XR/XR foot RT 2V IMPRESSION: Calcaneal enthesopathy.
--- NOTE | ~2023-08-24 | XR_ITS ---
EXAMINATION: XR FOOT, LEFT CLINICAL INFORMATION: Left-sided pain COMPARISON: None available. TECHNIQUE: AP, lateral, and oblique views of the left foot. FINDINGS: No fracture, dislocation or destructive process. Joint spaces are preserved. Spurs project off the posterior calcaneus at the insertion of the Achilles tendon and plantar fascia. XR/XR foot LT 2V IMPRESSION: Calcaneal enthesopathy.
[2023-08-24 16:36] LABS: Alanine Aminotransferase 30 U/L (0-31); Albumin Level 4.4 g/dL (3.5-5.0); Alkaline Phosphatase 69 U/L (39-117); Anion Gap 14 (12-20); Aspartate Amino Transferase 27 U/L (5-31); Blood Urea Nitrogen 14 mg/dL (9-16); Calcium 10.7 mg/dL (8.4-10.2); Carbon Dioxide 28 mmol/L (22-29); Chloride 104 mmol/L (96-108); Estimated Glomerular Filt Rate > 60; Glucose Random 118 mg/dL (60-115); Potassium 3.8 mmol/L (3.3-5.1); Sodium 142 mmol/L (135-145); Total Protein 7.2 g/dL (6.5-8.0)
[2023-08-24 16:45] LABS: Estimated Average Glucose 123 mg/dL; Hemoglobin A1c % 5.9 % (<6.0)
[2023-08-24 16:51] LABS: TSH reflex Free T4 0.84 uIU/mL (0.32-4.0)
[2023-08-25 14:08] LABS: LDL Cholesterol Direct 87 mg/dL (<100)
== END 2023-08-24 14:25 | disposition home or self-care (01) ==
LOC: HO.HMGCX 14:24
PROVIDERS: PCP Internal Medicine; Visit Provider Internal Medicine
DX: M79.671 Pain in right foot (principal)
CPT/HCPCS: 36415; 73620; 80053; 83036; 83721; 84443

== ENCOUNTER 2023-11-25 09:23 | Outpatient (AMB) | payer OTHER, SELFPAY ==
--- NOTE | 2023-11-25 09:26 | MHC.PC.OV ---
Vital Signs 11/25/23 09:28 Height 5 ft 2 in Weight 231 lb BMI 42.2 BP 110/76 Blood Pressure Location Rt brachial Position Sitting Pulse 80 Pulse Source Pulse Oximeter Pulse Oximetry (%) 92 Oxygen Delivery Method Room Air Intake Visit Reasons: 3 month fu ( Meds ) Allergies No Known Allergies [No Known Allergies*] Allergy (Verified 11/25/23 09:28) Medication List - Last Reconciled 11/25/23 by Brielle Alfaro MD atorvastatin 40 mg PO DAILY 90 days cholecalciferol (vitamin D3) 50 mcg PO DAILY levothyroxine 100 mcg PO DAILY 90 days Tobacco use date assessed: 08/24/23 Fall risk assessment: No Falls in past year Last assessed Fall Risk: 11/25/23 Dental Screening Dental Screen Date: 08/24/23 HPI 3 month fu ( Meds ) HPI Details Patient is a 63-year-old female came in today for her follow-up appointment Foot pain has resolved, patient has visited the cost recovery technician and got injections She still has not made appointment with Dermatology for falling here And Neurology for memory issues, number provided to make appointment She is requesting orthopedic referral for cortisone injections, patient have bilateral knee pain She has a history of new osteoarthritis lab order placed to be done before next visit in April Lipid disorder: Continue atorvastatin 40 mg Hypothyroidism: Continue levothyroxine 100 mcg. TSH need to be checked again Continue vitamin-D supplement as well. GERD is stable with diet-controlled Eczema controlled with betamethasone cream Morbid obesity with BMI of 42.3 patient is having difficulty losing weight [facility] Social History Housing: House Patient Tobacco Use Status: Never used Tobacco e-Cigarette/Vaping Use: Never Used service: No Current occupational status: unemployed Cognitive needs: No Hearing needs: No Vision needs: No Questionnaire PHQ-9 Over the last 2 weeks, how often have you been bothered by any of the following problems? 1. Little interest or pleasure in doing things: not at all 2. Feeling down, depressed, or hopeless: not at all 3. Trouble falling or staying asleep, or sleeping too much: not at all 4. Feeling tired or having little energy: several days 5. Poor appetite or overeating: not at all 6. Feeling bad about yourself - or that you are a failure or have let yourself or your family down: not at all 7. Trouble concentrating on things, such as reading the newspaper or watching television: not at all 8. Moving or speaking so slowly that other people could have noticed. Or the opposite - being so fidgety or restless that you have been moving around a lot more than usual: several days 9. Thoughts that you would be better off or of hurting yourself in some way: not at all Total score: 2 Depression Screening Interpretation: Negative Depression Screening Done: Yes 29287 - PHQ-9 Billing: Yes Source: Developed by Drs. Shahzad Millan, Jaimee Shetty, Dominick Pedraza and colleagues, with an educational nic from [employer]. Thrive Questionnaire Date Thrive assessed: 04/20/23 MARGARITO-7 AMB Questionnaire MARGARITO-7 Date MARGARITO - 7 assessed: 04/20/23 Source: Developed by Drs. Shahzad Millan, Jaimee Shetty, Dominick Pedraza and colleagues, with an educational nic from [employer]. Review of Systems Const Denies chills and Denies fever(s) ENT Denies epistaxis and Denies nasal discharge Card Denies chest pain Resp Denies chest congestion, Denies cough and Denies hemoptysis GI Denies diarrhea and Denies nausea Skin/Breast Denies rash Neuro Reports no additional complaints Psych Reports no additional complaints Endo Reports no additional complaints Physical exam (Primary Care) Vital Signs: Last Vital Signs Pulse 80 11/25/23 09:28 BP 110/76 11/25/23 09:28 Pulse Ox 92 11/25/23 09:28 Oxygen Delivery Method Room Air 11/25/23 09:28 BMI result Body Mass Index 42.2 Tobacco/Smoking Status: Tobacco use Status Tobacco use date assessed 08/24/23 11/25/23 09:28 Patient Tobacco Use Status Never used Tobacco 11/25/23 09:28 e-Cigarette/Vaping Use Never Used 11/25/23 09:28 PHQ-9: PHQ-9 Score PHQ-9: Total score 2 11/25/23 09:45 Depression Screening Interpretation: Negative Thrive Assessment: Date of Thrive Assessment Date Thrive assessed 04/20/23 11/25/23 09:28 Const General: cooperative, comfortable and no acute distress Orientation/consciousness: patient oriented x3 [facility] Head: Yes normocephalic Eyes General: appearance normal, both eyes and all related structures Neck Neck: Yes supple Resp Effort & Inspection: normal respiratory effort, no cough and no stridor Cardio Rhythm: regular rhythm Heart sounds: S1 normal heart sound present and S2 normal heart sound present Skin General skin exam: turgor normal Neuro General: patient oriented x3, tone normal and moves all extremities Extrem Right lower extremity: no edema Left lower extremity: no edema Assessment and Plan Assessment & Plan (1) Other specified hypothyroidism: Code(s): E03.8 - Other specified hypothyroidism (2) Chronic GERD: Code(s): K21.9 - Gastro-esophageal reflux disease without esophagitis (3) Vitamin D deficiency: Code(s): E55.9 - Vitamin D deficiency, unspecified (4) LFT elevation: Code(s): R79.89 - Other specified abnormal findings of blood chemistry (5) Pre-diabetes: Code(s): R73.03 - Prediabetes (6) Lipid disorder: Code(s): E78.9 - Disorder of lipoprotein metabolism, unspecified (7) Osteoarthritis of knees, bilateral: Code(s): M17.0 - Bilateral primary osteoarthritis of knee Qualifiers: Osteoarthritis type: primary Qualified Code(s): M17.0 - Bilateral primary osteoarthritis of knee (8) Morbid obesity due to excess calories: Code(s): E66.01 - Morbid (severe) obesity due to excess calories (9) Knee pain, bilateral: Code(s): M25.561 - Pain in right knee; M25.562 - Pain in left knee Qualifiers: Chronicity: acute Qualified Code(s): M25.561 - Pain in right knee; M25.562 - Pain in left knee Plan Patient is a 63-year-old female came in today for her follow-up appointment Foot pain has resolved, patient has visited the cost recovery technician and got injections She still has not made appointment with Dermatology for falling here And Neurology for memory issues, number provided to make appointment She is requesting orthopedic referral for cortisone injections, patient have bilateral knee pain She has a history of new osteoarthritis lab order placed to be done before next visit in April Lipid disorder: Continue atorvastatin 40 mg Hypothyroidism: Continue levothyroxine 100 mcg. TSH need to be checked again Continue vitamin-D supplement as well. GERD is stable with diet-controlled Eczema controlled with betamethasone cream Morbid obesity with BMI of 42.3 patient is having difficulty losing weight Orders: Orders Complete Blood Count Auto Diff Today E03.8 - Other specified hypothyroidism, E55.9 - Vitamin D deficiency, unspecified, E66.01 - Morbid (severe) obesity due to excess calories, E78.9 - Disorder of lipoprotein metabolism, unspecified, K21.9 - Gastro-esophageal reflux disease without esophagitis, M17.0 - Bilateral primary osteoarthritis of knee, R73.03 - Prediabetes, R79.89 - Other specified abnormal findings of blood chemistry Comprehensive Met. Panel Today E03.8 - Other specified hypothyroidism, E55.9 - Vitamin D deficiency, unspecified, E66.01 - Morbid (severe) obesity due to excess calories, E78.9 - Disorder of lipoprotein metabolism, unspecified, K21.9 - Gastro-esophageal reflux disease without esophagitis, M17.0 - Bilateral primary osteoarthritis of knee, R73.03 - Prediabetes, R79.89 - Other specified abnormal findings of blood chemistry TSH reflex Free T4 Today E03.8 - Other specified hypothyroidism, E55.9 - Vitamin D deficiency, unspecified, E66.01 - Morbid (severe) obesity due to excess calories, E78.9 - Disorder of lipoprotein metabolism, unspecified, K21.9 - Gastro-esophageal reflux disease without esophagitis, M17.0 - Bilateral primary osteoarthritis of knee, R73.03 - Prediabetes, R79.89 - Other specified abnormal findings of blood chemistry Hemoglobin A1c Today E03.8 - Other specified hypothyroidism, E55.9 - Vitamin D deficiency, unspecified, E66.01 - Morbid (severe) obesity due to excess calories, E78.9 - Disorder of lipoprotein metabolism, unspecified, K21.9 - Gastro-esophageal reflux disease without esophagitis, M17.0 - Bilateral primary osteoarthritis of knee, R73.03 - Prediabetes, R79.89 - Other specified abnormal findings of blood chemistry LDL Cholesterol Direct Today E03.8 - Other specified hypothyroidism, E55.9 - Vitamin D deficiency, unspecified, E66.01 - Morbid (severe) obesity due to excess calories, E78.9 - Disorder of lipoprotein metabolism, unspecified, K21.9 - Gastro-esophageal reflux disease without esophagitis, M17.0 - Bilateral primary osteoarthritis of knee, R73.03 - Prediabetes, R79.89 - Other specified abnormal findings of blood chemistry Referrals Orthopedics Referral M17.0 - Bilateral primary osteoarthritis of knee Medications: Refilled atorvastatin 40 mg PO DAILY 90 tabs 1RF 90 days cholecalciferol (vitamin D3) 50 mcg PO DAILY 90 caps 1RF levothyroxine 100 mcg PO DAILY 90 tabs 1RF 90 days Coding Level of Care Code Est Pt Level 4 (06886) Complex EM visit Add On G2211 Diagnoses Other specified hypothyroidism E03.8 Chronic GERD K21.9 Vitamin D deficiency E55.9 LFT elevation R79.89 Pre-diabetes R73.03 Lipid disorder E78.9 Primary osteoarthritis of both knees M17.0 Osteoarthritis type: primary Morbid obesity due to excess calories E66.01 Acute pain of both knees M25.561; M25.562 Chronicity: acute
[2023-11-25 09:28] VITALS: BP 110/76; PULSE 80; O2SAT 92; BMI 42.2
== END 2023-11-25 14:09 | disposition home or self-care (01) ==
PROVIDERS: PCP Internal Medicine; Visit Provider Internal Medicine
DX: E03.8 Other specified hypothyroidism (principal); K21.9 Gastro-esophageal reflux disease without esophagitis; E66.01 Morbid (severe) obesity due to excess calories; Z68.41 Body mass index [BMI] 40.0-44.9, adult; E55.9 Vitamin D deficiency, unspecified; R79.89 Other specified abnormal findings of blood chemistry; R73.03 Prediabetes; E78.9 Disorder of lipoprotein metabolism, unspecified; M17.0 Bilateral primary osteoarthritis of knee; M25.561 Pain in right knee; M25.562 Pain in left knee
CPT/HCPCS: 99214; G2211

== ENCOUNTER 2023-12-21 09:40 | Outpatient (REF) | payer OTHER, SELFPAY | END 2023-12-21 09:41 | disposition home or self-care (01) | LOC: HO.HOSX 09:40 | PROVIDERS: Visit Provider Orthopaedic Surgery | DX: Z13.89 Encounter for screening for other disorder (principal) ==

== ENCOUNTER 2024-05-01 10:26 | Outpatient (AMB) | payer OTHER, SELFPAY ==
[2024-05-01 10:28] VITALS: BP 112/78; PULSE 85; O2SAT 97; BMI 40.2
--- NOTE | 2024-05-01 10:28 | A.OFFPC_ITS ---
Vital Signs 05/01/24 10:28 Height 5 ft 2 in Weight 220 lb BMI 40.2 BP 112/78 Blood Pressure Location Rt brachial Position Sitting Pulse 85 Pulse Source Pulse Oximeter Pulse Oximetry (%) 97 Oxygen Delivery Method Room Air Intake Visit Reasons: Annual PE Allergies No Known Allergies [No Known Allergies*] Allergy (Verified 05/01/24 10:30) Medication List - Last Reconciled 05/01/24 by Brielle Alfaro MD atorvastatin 40 mg PO DAILY 90 days cholecalciferol (vitamin D3) 50 mcg PO DAILY levothyroxine 100 mcg PO DAILY 90 days Tobacco use date assessed: 08/24/23 Dental Screening Dental Screen Date: 08/24/23 HPI Annual PE HPI Details Patient is a 63-year-old female came in today for her physical exam Mammogram declined Patient declined colonoscopy Declined OBGYN visit and Pap smear Lipid disorder: Continue atorvastatin 40 mg Hypothyroidism: Continue levothyroxine 100 mcg. Bilateral knee osteoarthritis: Ibuprofen as needed or Tylenol, patient was using diclofenac 3% local rub which was helping her Then her insurance declined to cover it, I have sent it again as per request I have ordered physical therapy for the patient, if that did not work then she will let me know so I can place orthopedic referral She has also developed lateral epicondylitis right elbow We talked about not lifting anything heavy for few days and see if it gets better Continue vitamin-D supplement as well. GERD is stable with diet-controlled Eczema controlled with betamethasone cream Morbid obesity with BMI in 40s, patient is having difficulty losing weight Follow-up 1 year physical exam Six-month regular Blood test is due Flu vaccine was given today [facility] Social History Housing: House Patient Tobacco Use Status: Never used Tobacco e-Cigarette/Vaping Use: Never Used service: No Current occupational status: unemployed Cognitive needs: No Hearing needs: No Vision needs: No Questionnaire PHQ-9 Over the last 2 weeks, how often have you been bothered by any of the following problems? 1. Little interest or pleasure in doing things: not at all 2. Feeling down, depressed, or hopeless: several days 3. Trouble falling or staying asleep, or sleeping too much: not at all 4. Feeling tired or having little energy: several days 5. Poor appetite or overeating: several days 6. Feeling bad about yourself - or that you are a failure or have let yourself or your family down: not at all 7. Trouble concentrating on things, such as reading the newspaper or watching television: not at all 8. Moving or speaking so slowly that other people could have noticed. Or the opposite - being so fidgety or restless that you have been moving around a lot more than usual: several days 9. Thoughts that you would be better off or of hurting yourself in some way: not at all Total score: 4 Depression Screening Interpretation: Negative Depression Screening Done: Yes 28499 - PHQ-9 Billing: Yes Source: Developed by Drs. Shahzad Millan, Jaimee Shetty, Dominick Pedraza and colleagues, with an educational nic from [employer] Thrive Questionnaire Date Thrive assessed: 04/30/24 I am a: Patient What is your living situation today?: I have a steady place to live Within the past 12 months, did the food you bought not last and you didn't have the money to get more?: I choose not to answer this question Within the past 12 months, did you worry whether your food would run out before you got money to buy more?: I choose not to answer this question Do you have trouble paying for medicines?: No Do you have trouble getting transportation to medical appointments?: I choose not to answer this question Do you have trouble paying your heating and electricity bill?: I choose not to answer this question Do you have trouble taking care of your child, family member or friend?: No Do you have trouble with day-to-day activities such as bathing, preparing meals, shopping, managing finances, etc.?: I choose not to answer this question Are you currently unemployed and looking for a job?: I choose not to answer this question Are you interested in more education?: I choose not to answer this question Please select the resources that you would like help with: Food, Transportation and Daily support Currently or been in a relationship where the following occur: I choose not to answer THRIVE Score: 0 AUDIT C Alcohol Use Questionnaire (AUDIT-C) 1. How often do you have a drink containing alcohol?: Never Total Score: 0 MARGARITO-7 AMB Questionnaire MARGARITO-7 Date MARGARITO - 7 assessed: 08/24/23 Feeling nervous, anxious, or on edge: 1 = Several days Not being able to stop or control worryin = Several days Worrying too much about different things: 1 = Several days Trouble relaxin = Not at all Being so restless that it is hard to sit still: 1 = Several days Becoming easily annoyed or irritable: 1 = Several days Feeling afraid as if something awful might happen: 0 = Not at all Total MARGARITO-7 score (0-4 normal; 5-9 mild; 10-14 moderate; 15-21 severe): 5 Source: Developed by Drs. Shahzad Millan, Jaimee Shetty, Dominick Pedraza and colleagues, with an educational nic from [employer] Review of Systems Const Denies chills, Denies fever(s) and Denies headache(s) Eyes Denies blurry vision ENT Denies headache(s), Denies nasal discharge, Denies nasal obstruction, Denies odynophagia and Denies sinus pain Card Denies chest pain at rest and Denies chest pain with activity Resp Denies cough and Denies hemoptysis GI Denies diarrhea, Denies odynophagia, Denies vomiting and Denies hematemesis Reports as per HPI Musc Denies abnormal gait Skin/Breast Reports as per HPI Neuro Denies Neuro-related abnormal movements, Denies Abnormal speech present, Denies abnormal gait, Denies headache(s) and Denies Sensory deficit (Neuro) Psych Denies mood swings and Denies paranoia Endo Reports as per HPI Uriah/Lymph Reports as per HPI Aller/Immun Reports as per HPI Physical exam (Primary Care) Vital Signs: Last Vital Signs Pulse 85 05/01/24 10:28 BP 112/78 05/01/24 10:28 Pulse Ox 97 05/01/24 10:28 Oxygen Delivery Method Room Air 05/01/24 10:28 BMI result Body Mass Index 40.2 Tobacco/Smoking Status: Tobacco use Status Tobacco use date assessed 08/24/23 05/01/24 10:31 Patient Tobacco Use Status Never used Tobacco 05/01/24 10:31 e-Cigarette/Vaping Use Never Used 05/01/24 10:31 PHQ-9: PHQ-9 Score PHQ-9: Total score 4 05/01/24 10:39 Depression Screening Interpretation: Negative Thrive Assessment: Date of Thrive Assessment Date Thrive assessed 04/30/24 05/01/24 10:31 Currently or been in a relationship where the following occur: I choose not to answer Const General: cooperative, comfortable and no acute distress Orientation/consciousness: patient oriented x3 HENMT Head: Yes normocephalic and Yes atraumatic Eyes General: appearance normal, both eyes and all related structures Pupils: Equal, round and reactive pupils present EOM: EOMs intact bilaterally Neck Neck: Yes supple and No lymphadenopathy Thyroid: Thyroid normal Lymphatic: no lymphadenopathy noted Resp Effort & Inspection: normal respiratory effort and able to speak in complete sentences Auscultation: clear to auscultation bilaterally Cardio Heart sounds: S1 normal heart sound present and S2 normal heart sound present GI Palpation (GI): Soft to palpation and nontender Auscultation: normal bowel sounds General: Yes no CVA tenderness Back/Spine/Pelvis Back: no CVA tenderness Skin General skin exam: elasticity normal and turgor normal Neuro General: patient oriented x3 and gait normal Cranial nerves: Yes Equal, round and reactive pupils present Speech: No Abnormal speech present Sensory Exam: No Sensory deficit (Neuro) Coordination: Romberg test negative Extrem General: Yes normal exam except as noted and No edema Office Procedures Flu Questionnaire Does the patient have a severe egg allergy?: No Does the patient have severe life threatening allergies?: No Does the patient have a fever or illness today?: No Has the patient ever had Guillain-[place] Syndrome?: No Has the patient ever had any past reaction to a flu shot?: No Immunizations Fluarix Triv 5624-6854 (PF) 45 mcg (15 mcg x 3)/0.5 mL IM syringe Performing Provider: Brielle Alfaro MD Performing Location: [facility] [place] [facility] Administered by: Roly Schwartz CMA on 05/01/24 10:55 Dose Route Admin Location Dispensed Lot Number Expiration Date 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 0.5 mL IM Left Deltoid 0.5 mL [id number] 12/31/24 [id number] [employer] VIS Given Date VIS Provided VIS Publication Date 05/01/24 Single Vaccine 21 Eligibility Eligibility Date Funding Source Not [facility] Eligible 05/01/24 Private Coding Level of Care Code Est Pt Level 3 (27452) Est Pt Prev Care 40-64y(63624) Diagnoses Encounter for general adult medical examination with abnormal findings Z00.01 Lateral epicondylitis, right elbow M77.11 Other specified hypothyroidism E03.8 Chronic GERD K21.9 Vitamin D deficiency E55.9 Acute pain of both knees M25.561; M25.562 Chronicity: acute Pre-diabetes R73.03 Lipid disorder E78.9 Primary osteoarthritis of both knees M17.0 Osteoarthritis type: primary Morbid obesity due to excess calories E66.01 Assessment & Plan Assessment & Plan (1) Encounter for general adult medical examination with abnormal findings: Code(s): Z00.01 - Encounter for general adult medical examination with abnormal findings Category: Medical (2) Lateral epicondylitis, right elbow: Code(s): M77.11 - Lateral epicondylitis, right elbow Category: Medical (3) Other specified hypothyroidism: Code(s): E03.8 - Other specified hypothyroidism Category: Medical (4) Chronic GERD: Code(s): K21.9 - Gastro-esophageal reflux disease without esophagitis Category: Medical (5) Vitamin D deficiency: Code(s): E55.9 - Vitamin D deficiency, unspecified Category: Medical (6) Knee pain, bilateral: Code(s): M25.561 - Pain in right knee; M25.562 - Pain in left knee Category: Medical Qualifiers: Chronicity: acute Qualified Code(s): M25.561 - Pain in right knee; M25.562 - Pain in left knee (7) Pre-diabetes: Code(s): R73.03 - Prediabetes Category: Medical (8) Lipid disorder: Code(s): E78.9 - Disorder of lipoprotein metabolism, unspecified Category: Medical (9) Osteoarthritis of knees, bilateral: Code(s): M17.0 - Bilateral primary osteoarthritis of knee Category: Medical Qualifiers: Osteoarthritis type: primary Qualified Code(s): M17.0 - Bilateral primary osteoarthritis of knee (10) Morbid obesity due to excess calories: Code(s): E66.01 - Morbid (severe) obesity due to excess calories Category: Medical Plan Patient is a 63-year-old female came in today for her physical exam Mammogram declined Patient declined colonoscopy Declined OBGYN visit and Pap smear Lipid disorder: Continue atorvastatin 40 mg Hypothyroidism: Continue levothyroxine 100 mcg. Bilateral knee osteoarthritis: Ibuprofen as needed or Tylenol, patient was using diclofenac 3% local rub which was helping her Then her insurance declined to cover it, I have sent it again as per request I have ordered physical therapy for the patient, if that did not work then she will let me know so I can place orthopedic referral She has also developed lateral epicondylitis right elbow We talked about not lifting anything heavy for few days and see if it gets mikayla r Continue vitamin-D supplement as well. GERD is stable with diet-controlled Eczema controlled with betamethasone cream Morbid obesity with BMI in 40s, patient is having difficulty losing weight Follow-up 1 year physical exam Six-month regular Blood test is due Flu vaccine was given today Orders: Orders Vitamin D 25-OH (D2 and D3) Today E03.8 - Other specified hypothyroidism, E55.9 - Vitamin D deficiency, unspecified, E66.01 - Morbid (severe) obesity due to excess calories, E78.9 - Disorder of lipoprotein metabolism, unspecified, K21.9 - Gastro-esophageal reflux disease without esophagitis, M17.0 - Bilateral primary osteoarthritis of knee, M25.561 - Pain in right knee, M25.562 - Pain in left knee, M77.11 - Lateral epicondylitis, right elbow, R73.03 - Prediabetes, Z00.01 - Encounter for general adult medical examination with abnormal findings Parathyroid Hormone Related Pr Today E03.8 - Other specified hypothyroidism, E55.9 - Vitamin D deficiency, unspecified, E66.01 - Morbid (severe) obesity due to excess calories, E78.9 - Disorder of lipoprotein metabolism, unspecified, K21.9 - Gastro-esophageal reflux disease without esophagitis, M17.0 - Bilateral primary osteoarthritis of knee, M25.561 - Pain in right knee, M25.562 - Pain in left knee, M77.11 - Lateral epicondylitis, right elbow, R73.03 - Prediabetes, Z00.01 - Encounter for general adult medical examination with abnormal findings Hemoglobin A1c Today E03.8 - Other specified hypothyroidism, E55.9 - Vitamin D deficiency, unspecified, E66.01 - Morbid (severe) obesity due to excess calories, E78.9 - Disorder of lipoprotein metabolism, unspecified, K21.9 - Gastro-esophageal reflux disease without esophagitis, M17.0 - Bilateral primary osteoarthritis of knee, M25.561 - Pain in right knee, M25.562 - Pain in left knee, M77.11 - Lateral epicondylitis, right elbow, R73.03 - Prediabetes, Z00.01 - Encounter for general adult medical examination with abnormal findings PT Evaluation and Treatment Today M17.0 - Bilateral primary osteoarthritis of knee Complete Blood Count Auto Diff Today E03.8 - Other specified hypothyroidism, E55.9 - Vitamin D deficiency, unspecified, E66.01 - Morbid (severe) obesity due to excess calories, E78.9 - Disorder of lipoprotein metabolism, unspecified, K21.9 - Gastro-esophageal reflux disease without esophagitis, M17.0 - Bilateral primary osteoarthritis of knee, M25.561 - Pain in right knee, M25.562 - Pain in left knee, M77.11 - Lateral epicondylitis, right elbow, R73.03 - Prediabetes, Z00.01 - Encounter for general adult medical examination with abnormal findings Comprehensive Marshall. Panel Fast Today E03.8 - Other specified hypothyroidism, E55.9 - Vitamin D deficiency, unspecified, E66.01 - Morbid (severe) obesity due to excess calories, E78.9 - Disorder of lipoprotein metabolism, unspecified, K21.9 - Gastro-esophageal reflux disease without esophagitis, M17.0 - Bilateral primary osteoarthritis of knee, M25.561 - Pain in right knee, M25.562 - Pain in left knee, M77.11 - Lateral epicondylitis, right elbow, R73.03 - Prediabetes, Z00.01 - Encounter for general adult medical examination with abnormal findings Lipid Panel Today E03.8 - Other specified hypothyroidism, E55.9 - Vitamin D deficiency, unspecified, E66.01 - Morbid (severe) obesity due to excess calories, E78.9 - Disorder of lipoprotein metabolism, unspecified, K21.9 - Gastro-esophageal reflux disease without esophagitis, M17.0 - Bilateral primary osteoarthritis of knee, M25.561 - Pain in right knee, M25.562 - Pain in left knee, M77.11 - Lateral epicondylitis, right elbow, R73.03 - Prediabetes, Z00.01 - Encounter for general adult medical examination with abnormal findings TSH reflex Free T4 Today E03.8 - Other specified hypothyroidism, E55.9 - Vitamin D deficiency, unspecified, E66.01 - Morbid (severe) obesity due to excess calories, E78.9 - Disorder of lipoprotein metabolism, unspecified, K21.9 - Gastro-esophageal reflux disease without esophagitis, M17.0 - Bilateral primary osteoarthritis of knee, M25.561 - Pain in right knee, M25.562 - Pain in left knee, M77.11 - Lateral epicondylitis, right elbow, R73.03 - Prediabetes, Z00.01 - Encounter for general adult medical examination with abnormal findings Influenza [id number] Immunization Today Z23 - Encounter for immunization Medications: Refilled diclofenac sodium 3% 1 appl topical BID 30 days 200 grams 5RF
== END 2024-05-01 11:09 | disposition home or self-care (01) ==
LOC: HO.HMCC 10:26
PROVIDERS: PCP Internal Medicine; Visit Provider Internal Medicine
DX: Z00.00 Encounter for general adult medical examination without abnormal findings (principal); M25.561 Pain in right knee; M25.562 Pain in left knee; E66.01 Morbid (severe) obesity due to excess calories; Z68.41 Body mass index [BMI] 40.0-44.9, adult; M77.11 Lateral epicondylitis, right elbow; E03.8 Other specified hypothyroidism; K21.9 Gastro-esophageal reflux disease without esophagitis; E55.9 Vitamin D deficiency, unspecified; R73.03 Prediabetes; E78.9 Disorder of lipoprotein metabolism, unspecified; M17.0 Bilateral primary osteoarthritis of knee

== ENCOUNTER → 2024-05-01 10:26 | Outpatient (BNVA) | payer OTHER, SELFPAY | PROVIDERS: PCP Internal Medicine; Visit Provider Internal Medicine | DX: Z00.01 Encounter for general adult medical examination with abnormal findings (principal); Z23 Encounter for immunization; M77.11 Lateral epicondylitis, right elbow; E03.8 Other specified hypothyroidism; K21.9 Gastro-esophageal reflux disease without esophagitis; E55.9 Vitamin D deficiency, unspecified; M25.561 Pain in right knee; M25.562 Pain in left knee; R73.03 Prediabetes; E78.9 Disorder of lipoprotein metabolism, unspecified | CPT/HCPCS: 90471; 90656; 96127; 99212; 99396 ==

== ENCOUNTER 2024-05-02 10:15 | Outpatient (REF) | payer OTHER, SELFPAY | END 2024-05-02 10:16 | disposition home or self-care (01) | LOC: HO.HMGCLDS 10:15 | PROVIDERS: PCP Internal Medicine; Visit Provider Internal Medicine | DX: Z13.89 Encounter for screening for other disorder (principal) ==

== ENCOUNTER → 2024-05-14 10:08 | Outpatient (REF) | payer OTHER, SELFPAY ==
[2024-05-14 10:44] LABS: MANUAL DIFF FLAG NO
[2024-05-14 10:45] LABS: Basophils Absolute Auto 0.1 X10*3/uL (0.0-0.2); Basophils Percent Auto 1.1 % (0-2); Eosinophils Absolute Auto 0.3 X10*3/uL (0.0-0.4); Eosinophils Percent Auto 6.3 % (0-4); Hematocrit 42.1 % (37.0-47.0); Hemoglobin 14.2 g/dl (12.0-16.0); Imm Gran Abs Auto 0.01 X10*3/uL (0.00-0.03); Imm Gran Pct Auto 0.2 % (0.0-0.4); Lymphocytes Absolute Auto 2.1 X10*3/uL (1.2-4.9); Lymphocytes Percent Auto 45.5 % (20-40); Mean Corpuscular HGB Conc 33.7 g/dl (31.0-35.0); Mean Corpuscular Hemoglobin 30.5 pg (27.0-33.0); Mean Corpuscular Volume 90.3 fL (80.0-98.0); Monocytes Absolute Auto 0.4 X10*3/uL (0.1-1.2); Monocytes Percent Auto 8.7 % (2-11); Neutrophils Absolute Auto 1.8 x10*3/uL (2.0-8.3); Neutrophils Percent Auto 38.2 % (45-73); Platelet Count 194 X10*3/uL (160-400); Red Blood Count 4.66 X10*6/uL (4.20-5.50); Red Cell Distribution Width 12.7 % (11.0-16.0); White Blood Count 4.6 X10*3/uL (4.8-10.8)
[2024-05-14 10:54] LABS: Estimated Average Glucose 120 mg/dL; Hemoglobin A1C 147.4282 umol/L; Hemoglobin A1c % 5.8 % (<6.0); Total Hemoglobin (HGBA1C) 3702.6189 umol/L
[2024-05-14 11:45] LABS: Alanine Aminotransferase 33 U/L (0-31); Albumin Level 4.2 g/dL (3.5-5.0); Alkaline Phosphatase 60 U/L (39-117); Anion Gap 9 (12-20); Aspartate Amino Transferase 25 U/L (5-31); Bilirubin Total 1.3 mg/dL (0.0-1.0); Blood Urea Nitrogen 18 mg/dL (9-16); Calcium 9.8 mg/dL (8.4-10.2); Carbon Dioxide 27 mmol/L (22-29); Chloride 109 mmol/L (96-108); Cholesterol 143 mg/dL (<200); Estimated Glomerular Filt Rate > 60; Glucose Fasting 109 mg/dL (60-99); HDL Cholesterol 43 mg/dL (>40); LDL Cholesterol Calculated 76 mg/dL (<100); Potassium 3.9 mmol/L (3.3-5.1); Sodium 141 mmol/L (135-145); Total Protein 6.9 g/dL (6.5-8.0); Triglycerides 124 mg/dL (<150)
[2024-05-14 12:04] LABS: TSH reflex Free T4 3.04 uIU/mL (0.32-4.0)
[2024-05-18 18:03] LABS: Vitamin D 25-OH, D2 <4 ng/mL; Vitamin D 25-OH, D3 31 ng/mL; Vitamin D 25-OH, Total 31 ng/mL (30-100)
[2024-05-25 18:07] LABS: Parathyroid Hormone Related Pr 10 pg/mL (11-20)
== END ==
LOC: HO.SL 10:08
PROVIDERS: PCP Internal Medicine; Visit Provider Internal Medicine
DX: G47.33 Obstructive sleep apnea (adult) (pediatric) (principal); M77.11 Lateral epicondylitis, right elbow; E66.01 Morbid (severe) obesity due to excess calories; R73.03 Prediabetes; M17.0 Bilateral primary osteoarthritis of knee; E78.9 Disorder of lipoprotein metabolism, unspecified; K21.9 Gastro-esophageal reflux disease without esophagitis; M25.562 Pain in left knee; M25.561 Pain in right knee; E55.9 Vitamin D deficiency, unspecified; E03.8 Other specified hypothyroidism; Z00.01 Encounter for general adult medical examination with abnormal findings
CPT/HCPCS: 36415; 80053; 80061; 82306; 83036; 83519; 84443; 85025; 95806

== ENCOUNTER → 2024-05-14 19:00 | Outpatient (BNV) | payer OTHER, SELFPAY | PROVIDERS: PCP Internal Medicine; Visit Provider Internal Medicine | DX: G47.33 Obstructive sleep apnea (adult) (pediatric) (principal) | CPT/HCPCS: 95806 ==

== ENCOUNTER 2024-06-25 09:53 | Outpatient (AMB) | payer OTHER, SELFPAY ==
--- NOTE | 2024-06-25 10:11 | A.OFFVIS_ITS ---
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 Patient reports ongoing pain for about 10 years. Hx of injection on one of her knees but it was about 5 years ago. She mentions that her pain is worse on the left knee and the right knee. Patient reports she is interested in getting injections. Patient is worse when sitting, standing and walking. Patient has tried and failed 3 + months of NSAIDs. 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 The patient was seen by her PCP on 05/01/24 and complained of experiencing bilateral knee pain due to osteoarthritis. She has tried ibuprofen, Tylenol, topical 3% diclofenac local rub with benefit. A physical therapy order was placed at that encounter and was discussed proceeding with Orthopedic referral if the physical therapy fails to provide symptom relief. While in the office today, the patient reports experiencing bilateral knee pain, ongoing for the past 10 years. Pain is worse on the left knee than the right knee. She received injections in one of the knees, 5 years ago. She mentions aggravating pain when sitting, standing and with ambulation. She has tried and failed more than three months of NSAIDs. She is interested in getting injections in her bilateral knee today. The patient is accompanied by her daughter today. [facility] Social History (Updated 06/25/24 @ 10:18 by Buck Wiley) Housing: House Alcohol intake: never Patient Tobacco Use Status: Never used Tobacco e-Cigarette/Vaping Use: Never Used service: No Current occupational status: unemployed Cognitive needs: No Hearing needs: No Vision needs: No Review of Systems Const All systems reviewed & are unremarkable except as noted in HPI and below Physical Exam Const General: cooperative and no acute distress Orientation/consciousness: patient oriented x3 Resp Effort & Inspection: normal respiratory effort and able to speak in complete sentences Cardio Peripheral pulses: Peripheral pulses 2+ throughout Skin General skin exam: no rashes or lesions noted Neuro General: patient oriented x3 Extrem Other: Bilateral knees: Full range of motion. Crepitus noted with range of motion. NVI. Office Procedures AMB Joint Injection/Aspiration Joint Injection/Aspiration Primary Site: right knee Secondary Site: left knee Prep: site was prepped using aseptic technique, ethochloride spray was applied and injection warnings given Injected: 80 mg of, DepoMedrol, with 8 mL of (2% plain lido ) and in the joint Approach Used: anterolateral Procedure: The patient tolerated the procedure well, but had some pain with the injection and there was some relief with the local anesthesia Coding 57747 - Large joint Procedure code (CPT) selection complete Assessment & Plan Assessment & Plan (1) Osteoarthritis of knees, bilateral: Code(s): M17.0 - Bilateral primary osteoarthritis of knee Category: Medical Qualifiers: Osteoarthritis type: primary Qualified Code(s): M17.0 - Bilateral primary osteoarthritis of knee Plan Ms. Astudillo is a 63-year-old female who presents in the office today, as a new patient, for an evaluation of bilateral knee pain. The patient was seen by her PCP on 05/01/24 and complained of experiencing bilateral knee pain due to osteoarthritis. She has tried ibuprofen, tylenol, topical 3% diclofenac local rub with benefit. A physical therapy order was placed at that encounter and was discussed proceeding with Orthopedic referral if the physical therapy fails to provide symptom relief. While in the office today, the patient reports experiencing bilateral knee pain, ongoing for the past 10 years. Pain is worse on the left knee than the right knee. She received injections in one of the knees, 5 years ago. She mentions aggravating pain when sitting, standing and with ambulation. She has tried and failed more than three months of NSAIDs. She is interested in getting injections in her bilateral knee today. The patient is accompanied by her daughter today. The patient was offered a cortisone injection in the bilateral knees with 80 mg of Depo-Medrol. The patient was explained the risks, benefits, and alternatives to receiving this injection. After receiving consent for the injection, the patient had the procedure done while in the office today. The patient tolerated the procedure well with no complication. Follow-up will be PRN, or sooner if needed. X-rays of the bilateral knees, which were obtained while in the office today and were reviewed by me, Lisa Coffey PA-C, revealed: Osteoarthritis. Orders: Orders XR knee RT 3V 06/25/24 M25.569 - Pain in unspecified knee XR knee LT 3V 06/25/24 M25.569 - Pain in unspecified knee Patient Instructions: Scribed by Graciela Mi, medical staff credentialing coordinator, for Lisa Coffey PA-C on 06/25/24 at 11:10 am EST. Coding Level of Care Code New Pt Level 4 (55966) Complex EM visit Add On G2211 Diagnoses Primary osteoarthritis of both knees M17.0 Osteoarthritis type: primary CPT Codes Coding - 52087 Large joint: 82076 - Large joint ([id number])
== END 2024-06-25 10:34 | disposition home or self-care (01) ==
PROVIDERS: PCP Internal Medicine; Visit Provider Physician Assistant
DX: M17.0 Bilateral primary osteoarthritis of knee (principal)
CPT/HCPCS: 20610

== ENCOUNTER 2024-06-25 15:28 | Outpatient (REF) | payer OTHER, SELFPAY | END 2024-06-25 15:29 | disposition home or self-care (01) | LOC: HO.HOSX 15:28 | PROVIDERS: Visit Provider Physician Assistant | DX: M17.0 Bilateral primary osteoarthritis of knee (principal); M25.561 Pain in right knee; M25.562 Pain in left knee | CPT/HCPCS: 20610; 73562; 99202; J1010; J2003 ==

== ENCOUNTER 2024-10-31 10:51 | Outpatient (REF) | payer SELFPAY ==
[2024-10-31 13:59] LABS: Estimated Average Glucose 126 mg/dL
[2024-10-31 14:14] LABS: Alanine Aminotransferase 31 U/L (0-31); Albumin Level 4.1 g/dL (3.5-5.0); Alkaline Phosphatase 68 U/L (39-117); Aspartate Amino Transferase 23 U/L (5-31); Bilirubin Direct 0.3 mg/dL (0.0-0.5); Bilirubin Total 1.4 mg/dL (0.0-1.0); TSH reflex Free T4 1.78 uIU/mL (0.32-4.0); Total Protein 6.8 g/dL (6.5-8.0)
== END 2024-10-31 10:52 | disposition home or self-care (01) ==
LOC: HO.HMGCLDS 10:51
PROVIDERS: PCP Internal Medicine; Visit Provider Internal Medicine
DX: M76.62 Achilles tendinitis, left leg (principal); E03.8 Other specified hypothyroidism; R73.03 Prediabetes; Z79.899 Other long term (current) drug therapy
CPT/HCPCS: 36415; 80076; 83036; 84443; 96127; 99212

== ENCOUNTER 2024-10-31 10:51 | Outpatient (AMB) | payer SELFPAY ==
[2024-10-31 11:05] VITALS: BP 120/70; PULSE 76; O2SAT 95; BMI 42.7
--- NOTE | 2024-10-31 11:05 | MHC.PC.OV ---
Vital Signs 10/31/24 11:05 Height 5 ft 2 in Weight 233 lb 4 oz BMI 42.7 BP 120/70 Blood Pressure Location Rt brachial Position Sitting Pulse 76 Pulse Source Pulse Oximeter Pulse Oximetry (%) 95 Oxygen Delivery Method Room Air Intake Visit Reasons: 6m follow up/insurance inactive Allergies No Known Allergies [No Known Allergies*] Allergy (Verified 10/31/24 11:07) Medication List - Last Reconciled 10/31/24 by Brielle Alfaro MD atorvastatin 40 mg PO DAILY 90 days cholecalciferol (vitamin D3) 50 mcg PO DAILY diclofenac sodium 3% 1 appl topical BID 30 days levothyroxine 100 mcg PO DAILY 90 days Tobacco use date assessed: 10/31/24 Fall risk assessment: No Falls in past year Last assessed Fall Risk: 10/31/24 Dental Screening Dental Screen Date: 10/31/24 Did you have a dental visit in the last 12 months?: No Did you have a dental problem in the last 6 months where you did not have access to dental care?: No Was dental information given to patient?: Patient declined HPI 6m follow up/insurance inactive HPI Details History - The patient is a 64-year-old female presenting with concerns of Achilles tendinitis, pain in legs, and overall fatigue. - Patient reports having pain and swelling located at the back of the left foot, attributed to Achilles tendinitis. pain has been ongoing for two months and worsens with pressure or certain movements. Swelling is also present in the affected area. - The patient has been using mbel-oaa-uxceoui pain medications like Advil and naproxen, which provide temporary relief. - The patient acknowledges chronic hypercholesterolemia, managed with medication. . Hypothyroidism: Continue levothyroxine due for TSH check and liver enzyme check Osteoarthritis multiple joints, requesting handicap placard Problem List - Achilles Tendinitis - hypothyroidism - Hypercholesterolemia Patient Instructions - Take ttwr-xtq-byakibz pain medications such as Advil, ibuprofen, or naproxen as advised for 10 days to 2 weeks.. - Continue taking prescribed medications for cholesterol and vitamin supplements. - Monitor for any worsening symptoms or side effects and inform if experiencing any unusual symptoms. Review of Systems - General: No fever no chills - Neurological: No headaches no dizziness - Ear nose throat: No sore throat no hearing difficulty no ear pain - Cardiovascular: No syncope, no chest pain, no palpitations - Gastrointestinal: No nausea vomiting or diarrhea - Endocrine: No polyuria polydipsia no heat intolerance - Genitourinary: No dysuria , no blood in urine Physical Exam General: No acute distress HEENT: No acute findings Neck: Supple Respiratory system: Coughing noted Cardiovascular: S1-S2 regular in rate and rhythm Gastrointestinal: No pain Extremities: Swelling and pain noted in the Achilles tendon area, consistent with Achilles tendonitis 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 1. Little interest or pleasure in doing things: several days 2. Feeling down, depressed, or hopeless: several days 3. Trouble falling or staying asleep, or sleeping too much: several days 4. Feeling tired or having little energy: several days 5. Poor appetite or overeating: not at all 6. Feeling bad about yourself - or that you are a failure or have let yourself or your family down: not at all 7. Trouble concentrating on things, such as reading the newspaper or watching television: not at all 8. Moving or speaking so slowly that other people could have noticed. Or the opposite - being so fidgety or restless that you have been moving around a lot more than usual: several days 9. Thoughts that you would be better off or of hurting yourself in some way: not at all Total score: 5 Depression Screening Interpretation: Negative Depression Screening Done: Yes 15658 - PHQ-9 Billing: Yes Source: Developed by Drs. Shahzad Millan, Jaimee Shetty, Dominick Pedraza and colleagues, with an educational nic from [employer]. Thrive Questionnaire Date Thrive assessed: 10/31/24 I am a: Patient What is your living situation today?: I have a steady place to live Within the past 12 months, did the food you bought not last and you didn't have the money to get more?: I choose not to answer this question Within the past 12 months, did you worry whether your food would run out before you got money to buy more?: I choose not to answer this question Do you have trouble paying for medicines?: I choose not to answer this question Do you have trouble getting transportation to medical appointments?: I choose not to answer this question Do you have trouble paying your heating and electricity bill?: I choose not to answer this question Do you have trouble taking care of your child, family member or friend?: No Do you have trouble with day-to-day activities such as bathing, preparing meals, shopping, managing finances, etc.?: Yes Are you currently unemployed and looking for a job?: I choose not to answer this question Are you interested in more education?: No Please select the resources that you would like help with: Daily support Currently or been in a relationship where the following occur: I choose not to answer THRIVE Score: 0 AUDIT C Alcohol Use Questionnaire (AUDIT-C) 1. How often do you have a drink containing alcohol?: Never 3. How often do you have six or more drinks on one occasion?: Never Total Score: 0 Score Reviewed/Action Taken: Yes MARGARITO-7 AMB Questionnaire MARGARITO-7 Date MARGARITO - 7 assessed: 10/31/24 Feeling nervous, anxious, or on edge: 0 = Not at all Not being able to stop or control worryin = Several days Worrying too much about different things: 1 = Several days Trouble relaxin = Several days Being so restless that it is hard to sit still: 1 = Several days Becoming easily annoyed or irritable: 1 = Several days Feeling afraid as if something awful might happen: 0 = Not at all Total MARGARITO-7 score (0-4 normal; 5-9 mild; 10-14 moderate; 15-21 severe): 5 Source: Developed by Drs. Shahzad Millan, Jaimee Shetty, Dominick Pedraza and colleagues, with an educational nic from [employer]. MARGARITO-7 Assessment Billing MARGARITO-7 Assessment Tool: MARGARITO-7 Assessment 86142 Physical exam (Primary Care) Vital Signs: Last Vital Signs Pulse 76 10/31/24 11:05 BP 120/70 10/31/24 11:05 Pulse Ox 95 10/31/24 11:05 Oxygen Delivery Method Room Air 10/31/24 11:05 BMI result Body Mass Index 42.7 Tobacco/Smoking Status: Tobacco use Status Tobacco use date assessed 10/31/24 10/31/24 11:09 Patient Tobacco Use Status Never used Tobacco 10/31/24 11:09 e-Cigarette/Vaping Use Never Used 10/31/24 11:09 PHQ-9: PHQ-9 Score PHQ-9: Total score 5 10/31/24 11:26 Depression Screening Interpretation: Negative Thrive Assessment: Date of Thrive Assessment Date Thrive assessed 10/31/24 10/31/24 11:09 Currently or been in a relationship where the following occur: I choose not to answer Coding Level of Care Code Est Pt Level 3 (74142) Diagnoses Achilles tendinitis, left leg M76.62 Other specified hypothyroidism E03.8 Pre-diabetes R73.03 Additional Codes MARGARITO-7 Assessment Billing - MARGARITO-7 Assessment Tool: MARGARITO-7 Assessment 71728 ([id number]) PHQ-9 - 26177 - PHQ-9 Billing: Yes ([id number]) Assessment & Plan Assessment & Plan (1) Achilles tendinitis, left leg: Code(s): M76.62 - Achilles tendinitis, left leg Category: Medical (2) Other specified hypothyroidism: Code(s): E03.8 - Other specified hypothyroidism Category: Medical (3) Pre-diabetes: Code(s): R73.03 - Prediabetes Category: Medical Plan History - The patient is a 64-year-old female presenting with concerns of Achilles tendinitis, pain in legs, and overall fatigue. - Patient reports having pain and swelling located at the back of the left foot, attributed to Achilles tendinitis. pain has been ongoing for two months and worsens with pressure or certain movements. Swelling is also present in the affected area. - The patient has been using jvky-zqa-gmpizib pain medications like Advil and naproxen, which provide temporary relief. - The patient acknowledges chronic hypercholesterolemia, managed with medication. . Hypothyroidism: Continue levothyroxine due for TSH check and liver enzyme check Osteoarthritis multiple joints, requesting handicap placard Problem List - Achilles Tendinitis - hypothyroidism - Hypercholesterolemia Patient Instructions - Take njqy-ojh-wxepuji pain medications such as Advil, ibuprofen, or naproxen as advised for 10 days to 2 weeks.. - Continue taking prescribed medications for cholesterol and vitamin supplements. - Monitor for any worsening symptoms or side effects and inform if experiencing any unusual symptoms. Orders: Orders TSH reflex Free T4 Today E03.8 - Other specified hypothyroidism, R73.03 - Prediabetes, R79.89 - Other specified abnormal findings of blood chemistry Liver Panel Today E03.8 - Other specified hypothyroidism, R73.03 - Prediabetes, R79.89 - Other specified abnormal findings of blood chemistry Hemoglobin A1c Today R73.03 - Prediabetes
== END 2024-10-31 11:44 | disposition home or self-care (01) ==
PROVIDERS: PCP Internal Medicine; Visit Provider Internal Medicine
DX: M76.62 Achilles tendinitis, left leg (principal); E03.8 Other specified hypothyroidism; R73.03 Prediabetes

== ENCOUNTER 2024-12-24 12:31 | Emergency (ER) | payer OTHER, SELFPAY ==
--- NOTE | ~2024-12-24 | XR_ITS ---
EXAMINATION: XR FOOT, LEFT CLINICAL INFORMATION: pain, swelling COMPARISON: [23/07/2023 TECHNIQUE: AP, lateral, and oblique views of the left foot. FINDINGS: Joint spaces are preserved. Osteophytes or erosions. No fractures are identified. Small plantar calcaneal and moderate Achilles calcaneal enthesophytes are evident. Focal ossification in distal Achilles tendon is no longer seen. XR/XR foot LT min 3V IMPRESSION: Nonspecific calcaneal enthesophytes. Electronically signed by: Manny Matos MD 12/24/2024 01:38 PM EDT
--- NOTE | ~2024-12-24 | XR_ITS ---
EXAMINATION: XR ANKLE, LEFT CLINICAL INFORMATION: pain, swelling COMPARISON: None available. TECHNIQUE: AP, lateral, and mortise views of the left ankle. FINDINGS: Best seen on the lateral projection, there are osseous densities (likely related to the Achilles insertion) approximately 1.9 cm proximal to the Achilles enthesis on the calcaneus, with associated soft tissue swelling in the distal Achilles region. Cannot exclude rupture of the Achilles tendon with associated fracture of enthesophytes. There is a large Achilles enthesophyte, and a small plantar enthesophyte. Ankle joint is intact. No fracture or dislocation. The mortise is intact. The talar dome is normal. XR/XR ankle LT min 3V IMPRESSION: 1. Findings concerning for partial or complete Achilles tendon rupture as detailed. Differential would include calcific enthesopathy and/or bursitis. 2. There is a large Achilles enthesophyte on the calcaneus, and a small plantar enthesophyte. 3. The ankle joint is intact. Electronically signed by: Johan Chaves MD 12/24/2024 01:39 PM EDT
[2024-12-24 12:35] VITALS: BP 128/57; PULSE 75; RESP 18; TEMP 36.4; O2SAT 98; BMI 38.5
--- NOTE | 2024-12-24 12:36 | ED_ITS ---
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 Patient has had pain to the left heel for 1 month. She has been walking but with a limp. She denies any specific injury her pain is worse with walking. She was walking up and down the stairs yesterday and her pain is 7/10. Denies any fevers, chills complaint: ankle injury and foot injury Onset (ago): month(s) Related Data Previous Rx's ?Medication ?Instructions ?Recorded diclofenac sodium 3 % topical gel 1 appl topical BID 3 0 days #200 05/01/24 grams atorvastatin 40 mg tablet 40 mg PO DAILY 90 days #90 t abs 09/25/24 cholecalciferol (vitamin D3) 50 50 mcg PO DAILY #90 ca ps 11/14/24 mcg (2,000 unit) capsule levothyroxine 100 mcg tablet 100 mcg PO DAILY 90 days #90 tabs 11/19/24 Allergies Allergy/AdvReac Type Severity Reaction Status Date / Time No Known Allergies (No Known Allergy Verified 12/24/24 12:36 Allergies*) Review of Systems Constitutional: Constitutional: Denies body ache(s), Denies chills and Denies fever(s) Cardiovascular: Cardiovascular: Denies chest pain and Denies dyspnea on exertion Respiratory: Respiratory: Denies cough and Denies dyspnea on exertion Gastrointestinal: Gastrointestinal: Denies abdominal pain, Denies nausea and Denies vomiting Musculoskeletal: Musculoskeletal: Reports arthralgias, Reports joint swelling and Reports limited range of motion Integumentary/Breasts: Skin/Breast: Denies rash Psychiatric: Psychiatric: Denies anxiety [facility] Social History Social History Housing: House Alcohol intake: never Patient Tobacco Use Status: Never used Tobacco Smoked in Last 30 Days: No e-Cigarette/Vaping Use: Never Used Use of substances other than those prescribed or required for medical reasons: No Advance Directives: No Advance Directives Information Provided: Yes service: No Current occupational status: unemployed Cognitive needs: No Hearing needs: No Vision needs: No Physical Exam Vital Signs: Vital Signs: Last Vital Signs Temp 97.9 F 12/24/24 19:02 Pulse 81 12/24/24 19:02 Resp 18 12/24/24 19:02 BP 147/72 H 12/24/24 19:02 Pulse Ox 97 12/24/24 19:02 O2 Del Method Room Air 12/24/24 19:02 BMI result Body Mass Index 38.5 Const: General: healthy appearing, comfortable, no acute distress, alert and awake Nutritional Appearance: well nourished Orientation/consciousness: patient oriented x3 HEENT: Head: Yes normocephalic and Yes atraumatic Eyes: Eyelids: Yes eyelids normal Conjunctivae: conjunctivae normal Sclerae: sclerae normal Corneas: corneas normal Pupils: Equal, round and reactive pupils present EOM: EOMs intact bilaterally Neck: Neck: Yes full ROM Resp: Effort & Inspection: normal respiratory effort, able to speak in complete sentences and not labored Skin: General skin exam: elasticity normal Neuro: General: patient oriented x3 Cranial nerves: Yes Equal, round and reactive pupils present and Yes Bilaterally intact EOM present Cognition (Neuro): normal cognition Extrem: Other: patient has moderate edema with ecchymosis over the insertion point of the left Achilles tendon. This area is tender to palpation with some bogginess. Positive Prado test on left. Course Course Course Narrative: This is an RME: Additional HPI, ROS, PE not included below will be deferred to primary provider. RME assessment and note performed by: Tamiko Li PA-C This is a 64-year-old female who presents emergency department with complaints of left heel and ankle pain with associated swelling for the last month. No known injury or trauma. Patient with pain overlying the Achilles, as well as pain overlying the medial and lateral malleolus. Strong radial pulse. Some ecchymosis seen. ? Defect over the Achilles tendon. Plan: X-ray, further ER evaluation needed. Medical Decision Making Medical Decision Making MDM Narrative: 64-year-old female presents for evaluation of left heel and lower leg pain. She denies any specific injury, twisting, falls or otherwise. On exam there is concern for Achilles tendon rupture. X-ray shows concern for Achilles tendon rupture. With my attending, Dr Avendano, a bedside ultrasound was performed that confirms a complete Achilles tendon rupture on left. I discussed this with the patient and her daughter. The patient was placed in a posterior walking splint with plantar flexion. The patient is given crutches and advised not to bear any weight on the left lower extremity. Differential Diagnosis Differential Diagnoses: The differential diagnosis associated with the presentation includes Ankle sprain Achilles tendon rupture DVT Partial Achilles tendon rupture Tendonitis Independent Interpretation I performed an independent interpretation of an: Plain X-Ray Interpretation: agree with Radiology interpretation Radiology Impression Discussion of test interpretation with radiology: I have reviewed the radiologist's reading. Radiologist Impression: FINDINGS: Joint spaces are preserved. Osteophytes or erosions. No fractures are identified. Small plantar calcaneal and moderate Achilles calcaneal enthesophytes are evident. Focal ossification in distal Achilles tendon is no longer seen. XR/XR foot LT min 3V IMPRESSION: Nonspecific calcaneal enthesophytes. Electronically signed by: Manny aMtos MD 12/24/2024 01:38 PM EDT XR/XR ankle LT min 3V IMPRESSION: 1. Findings concerning for partial or complete Achilles tendon rupture as detailed. Differential would include calcific enthesopathy and/or bursitis. 2. There is a large Achilles enthesophyte on the calcaneus, and a small plantar enthesophyte. 3. The ankle joint is intact. Electronically signed by: Johan Chaves MD 12/24/2024 01:39 PM EDT Procedures Procedure Narrative Procedure Narrative: EMERGENCY ULTRASOUND INTERPRETATION- Limited Musculoskeletal [This study was ordered, performed, and interpreted by myself. The study reveals: Impression: Evidence of complete left Achilles tendon rupture] [Indication: Swelling posterior left ankle Tendon: Left Achilles with abrupt tendinous disruption and large hematoma. Suggesting complete Achilles rupture Performed by: Favio Leyva MD Images were stored ] Discharge Plan Discharge Clinical Impression: Achilles tendon rupture Qualifiers: Encounter type: initial encounter Laterality: left Qualified Code(s): S86.012A - Strain of left Achilles tendon, initial encounter Patient Disposition: Home, Self-Care Instructions: Achilles Tendon Rupture (ED) Additional Instructions: you have a rupture of the left Achilles tendon. You should not bear weight on the left foot. Use the crutches to get around call orthopedics tomorrow morning at the number provided to schedule follow-up you may continue to use ibuprofen / Tylenol for pain Prescriptions: No Action atorvastatin 40 mg tablet 40 mg PO DAILY 90 Days Qty: 90 1RF cholecalciferol (vitamin D3) 50 mcg (2,000 unit) capsule 50 mcg PO DAILY Qty: 90 0RF levothyroxine 100 mcg tablet 100 mcg PO DAILY 90 Days Qty: 90 0RF diclofenac sodium 3 % gel 1 appl topical BID 30 Days Qty: 200 5RF Referrals: [facility] [place] [facility] [Provider Group] Referral Note: left achilles tendon rupture Interventions: ED Discharge Assessment Last Done: 12/24/24 19:02 Discharge Date/Time: 12/24/24 19:29 Print Language: Rwandan
[2024-12-24 19:01] VITALS: BP 147/72; PULSE 81; RESP 18; TEMP 36.6; O2SAT 97
[2024-12-24 19:02] VITALS: BP 147/72; PULSE 81; RESP 18; TEMP 36.6; O2SAT 97
--- NOTE | 2024-12-24 19:26 | PC.NURSE ---
patient declined to use crutches stating she felt unsafe and would fall with them. Had PA Juan Miguel to bedside. Pt educated on importance of staying off leg and recommended to stay for PT/CM however patient declined stating she would borrow wheelchair from friends
== END 2024-12-24 19:29 | disposition home or self-care (01) ==
PROVIDERS: Emergency Provider Emergency Medicine; PCP Internal Medicine
DX: S86.012A Strain of left Achilles tendon, initial encounter (principal); M79.672 Pain in left foot; M25.572 Pain in left ankle and joints of left foot; X58.XXXA Exposure to other specified factors, initial encounter; Y93.9 Activity, unspecified; Y92.9 Unspecified place or not applicable; Y99.8 Other external cause status
CPT/HCPCS: 73610; 73630; 99283; 99284

== ENCOUNTER → 2024-12-24 12:46 | Outpatient (BNV) | payer SELFPAY | PROVIDERS: PCP Internal Medicine; Visit Provider Radiology Diagnostic Radiology | DX: M77.52 Other enthesopathy of left foot and ankle (principal); M77.32 Calcaneal spur, left foot | CPT/HCPCS: 73610; 73630 ==

== ENCOUNTER 2024-12-27 08:23 | Outpatient (AMB) | payer SELFPAY ==
[2024-12-27 08:28] VITALS: BMI 38.4
--- NOTE | 2024-12-27 08:28 | A.OFFVIS_ITS ---
Vital Signs 12/27/24 08:28 Height 5 ft 2 in Weight 210 lb BMI 38.4 Intake Visit Reasons: New Pt - Left Achilles Tendon Rupture Intake Note: Husam is a 64 year old female who presents today as a New Patient for evaluation of her Left Achilles Tendon. Patient was seen at [facility] [place] [place] ED on 12/24/24 where she reported ongoing left Achilles pain ongoing for 1 month. Denies inju ry. She was instructed to remain non weight bearing and provided with crutches at ED. Allergies No Known Allergies (No Known Allergies*) Allergy (Verified 12/27/24 08:29) HPI HPI New Pt - Left Achilles Tendon Rupture: Details: Husam is a 64 year old female who presents today as a New Patient for evaluation of her Left Achilles Tendon. Patient was seen at [facility] [place] [place] ED on 12/24/24 where she reported ongoing left Achilles pain ongoing for 1 month. Denies injury. She was instructed to remain non weight bearing and provided with crutches at ED. apparently an ultrasound showed she had an Achilles tendon tear. She has been having pain and not walking on her leg since she stepped awkwardly a few days ago. [facility] Social History Housing: House Alcohol intake: never Patient Tobacco Use Status: Never used Tobacco e-Cigarette/Vaping Use: Never Used service: No Current occupational status: unemployed Cognitive needs: No Hearing needs: No Vision needs: No Physical Exam Vital Signs: BMI result Body Mass Index 38.4 Extrem Other: Ecchymosis about the posterior lower leg and ankle. There is a palpable defect at the distal aspect of the Achilles tendon. Positive Prado test. Assessment & Plan Assessment & Plan (1) Achilles tendon rupture: Code(s): S86.019A - Strain of unspecified Achilles tendon, initial encounter Category: Medical Qualifiers: Encounter type: initial encounter Laterality: left Qualified Code(s): S86.012A - Strain of left Achilles tendon, initial encounter Plan This is a 64-year-old woman with a rupture of the left Achilles tendon. I had a discussion with her regarding nonoperative versus operative management. I discussed the risks, benefits and alternatives to each. I recommend nonoperative management and she agrees. We will proceed forward accordingly. I have given her a boot with a wedge and physical therapy and she will follow up in 6 weeks. Orders: Orders PT Evaluation and Treatment Today S86.012A - Strain of left Achilles tendon, initial encounter Coding Level of Care Code New Pt Level 4 (73782) Diagnoses Achilles tendon rupture S86.012A Encounter type: initial encounter Laterality: left
== END 2024-12-27 09:16 | disposition home or self-care (01) ==
LOC: HO.HOS 08:23
PROVIDERS: PCP Internal Medicine; Visit Provider Orthopaedic Surgery
DX: S86.012A Strain of left Achilles tendon, initial encounter (principal)
CPT/HCPCS: 99213

== ENCOUNTER → 2024-12-27 08:23 | Outpatient (BNVA) | payer OTHER, SELFPAY | PROVIDERS: PCP Internal Medicine; Visit Provider Orthopaedic Surgery | DX: M25.572 Pain in left ankle and joints of left foot (principal); S86.012A Strain of left Achilles tendon, initial encounter | CPT/HCPCS: 99212 ==

== ENCOUNTER 2025-05-14 11:47 | Outpatient (AMB) | payer MEDICAID, SELFPAY ==
[2025-05-14 11:49] VITALS: BP 112/64; PULSE 69; RESP 17; O2SAT 97; BMI 33.3
--- NOTE | 2025-05-14 11:49 | A.OFFPC_ITS ---
Vital Signs 05/14/25 11:49 Height 5 ft 2 in Weight 182 lb BMI 33.3 BP 112/64 Blood Pressure Location Lt brachial Position Sitting Respiration 17 Pulse 69 Pulse Source Pulse Oximeter Pulse Oximetry (%) 97 Oxygen Delivery Method Room Air Intake Visit Reasons: PE Allergies No Known Allergies (No Known Allergies*) Allergy (Verified 05/14/25 11:51) Medication List - Last Reconciled 05/14/25 by Brielle Alfaro MD atorvastatin 40 mg PO DAILY 90 days cholecalciferol (vitamin D3) 50 mcg PO DAILY diclofenac sodium 3% 1 appl topical BID 30 days levothyroxine 100 mcg PO DAILY 90 days Tobacco use date assessed: 05/14/25 Fall risk assessment: No Falls in past year Last assessed Fall Risk: 05/14/25 Dental Screening Dental Screen Date: 10/31/24 HPI PE HPI Details History of Present Illness The patient is a 64-year-old female presenting for a physical examination, medication management, and follow-up on multiple chronic conditions. Hyperlipidemia: - The patient reports she stopped taking her cholesterol medication 15 days ago due to experiencing weakness. - She states her body feels fine since d iscontinuing the medication. - She has a family history of high tanner sterol. Foot problems: - The patient has an orthopedic issue wi th her Rt foot, described as a pain in middle 2 toes - She notes some pain when putting her f oot down. - Inspection reveals a fungal infection on a toenail of the right foot as well Weight management: - The patient has achieved significant w eight loss of 28 pounds through dieting. - Her weight has decreased from 235 lbs to 210 lbs. Health Maintenance: - The patient has not had a mammogram an d is due for one.she dont want it - She has already received the shingles vaccine. - She takes vitamin D3 and is due for la b checks of her vitamin D3 and B12 levels. - The patient requires refills for her t hyroid medication. Medical History: - Hyperlipidemia - Arthritis - Hypothyroidism - Onychomycosis - Vitamin D deficiency - Sleep apnea - pain right foot - H/o achillis tendon rupture left side Medications - Cholesterol medication: self-discontin ued 15 days ago due to weakness. - Vitamin D3 supplement: currently [place] - Thyroid medication: currently taking, requires refill. Patient Instructions - You will get a flu shot today. - Continue taking your Vitamin D3 supple ment. - Get your blood tests done next month t o check your cholesterol, vitamin B12, vitamin D3, and thyroid levels. - Follow up with the orthopedic doctor f or your foot achillis tendon pain left side - You need to schedule a mammogram. how ever patient declined - Continue with your diet for weight man agement. - Follow up with your neurologist, for m [place] issue you are having. - Return for a follow-up appointment in four months. Review of Systems - General: No fever no chills - Neurological: No headaches no dizzin ess - Ear nose throat: No sore throat no hearing difficulty no ear pain - Cardiovascular: No syncope, no chest pain, no palpitations - Gastrointestinal: No nausea vomiting or diarrhea - Endocrine: No polyuria polydipsia no heat intolerance - Genitourinary: No dysuria - Skin: No new complaints Physical Exam General: Cooperative, healthy appearing, comfortable, no acute distress Orientation: Patient oriented x3 Head: Normal to inspection Ears: Within normal limit visually Nose: Normal external nose present Face and sinus: Normal facial exam Eyes: Appearance normal, extraocular movement intact pupils reactive Neck: Normal visual inspection and supple Respiratory: Normal respiratory effort and able to speak in complete sentences. Clear to auscultation, no stridor Cardiovascular: S1 and S2 RRR Breast exam declined GI: Normal to inspection. Soft to palpation and nontender Skin: Turgor normal, no acute findings Neuro: Patient oriented x3, motor sensory intact, balance intact Extremities: right foot pain middle two toes , Onycomycosis great toe, weakness over achillis tendon left . . [facility] Social History Housing: House Alcohol intake: never Patient Tobacco Use Status: Never used Tobacco e-Cigarette/Vaping Use: Never Used service: No Current occupational status: unemployed Cognitive needs: No Hearing needs: No Vision needs: No Questionnaire Thrive Questionnaire Date Thrive assessed: 10/26/24 I am a: Patient What is your living situation today?: I have a steady place to live Within the past 12 months, did the food you bought not last and you didn't have the money to get more?: I choose not to answer this question Within the past 12 months, did you worry whether your food would run out before you got money to buy more?: I choose not to answer this question Do you have trouble paying for medicines?: I choose not to answer this question Do you have trouble getting transportation to medical appointments?: I choose not to answer this question Do you have trouble paying your heating and electricity bill?: I choose not to answer this question Do you have trouble taking care of your child, family member or friend?: No Do you have trouble with day-to-day activities such as bathing, preparing meals, shopping, managing finances, etc.?: Yes Are you currently unemployed and looking for a job?: I choose not to answer this question Are you interested in more education?: No Please select the resources that you would like help with: Daily support Currently or been in a relationship where the following occur: I choose not to answer THRIVE Score: 0 AUDIT C Alcohol Use Questionnaire (AUDIT-C) 3. How often do you have six or more drinks on one occasion?: Never Total Score: 0 MARGARITO-7 AMB Questionnaire MARGARITO-7 Date MARGARITO - 7 assessed: 10/31/24 Source: Developed by Drs. Shahzad iMllan, Jaimee Shetty, Dominick Pedraza and colleagues, with an educational nic from [employer]. Physical exam (Primary Care) Vital Signs: Last Vital Signs Pulse 69 05/14/25 11:49 Resp 17 05/14/25 11:49 BP 112/64 05/14/25 11:49 Pulse Ox 97 05/14/25 11:49 Oxygen Delivery Method Room Air 05/14/25 11:49 BMI result Body Mass Index 33.3 Tobacco/Smoking Status: Tobacco use Status Tobacco use date assessed 05/14/25 05/14/25 11:55 Patient Tobacco Use Status Never used Tobacco 05/14/25 11:55 e-Cigarette/Vaping Use Never Used 05/14/25 11:55 Thrive Assessment: Date of Thrive Assessment Date Thrive assessed 10/26/24 05/14/25 11:55 Currently or been in a relationship where the following occur: I choose not to answer Office Procedures Flu Questionnaire Does the patient have a severe egg allergy?: No Does the patient have severe life threatening allergies?: No Does the patient have a fever or illness today?: No Has the patient ever had Guillain-Merrillan Syndrome?: No Has the patient ever had any past reaction to a flu shot?: No Immunizations Fluarix [id number] (PF) 45 mcg (15 mcg x 3)/0.5 mL IM syringe Performing Provider: Brielle Alfaro MD Performing Location: [facility] [place] [facility] Administered by: Melinda Zarate MA on 05/14/25 12:32 Dose Route Admin Location Dispensed Lot Number Expiration Date NDC Room Cooler Installer 0.5 mL IM Left Deltoid 0.5 mL [id number] 12/31/25 [id number] [email or web address] VIS Given Date VIS Provided VIS Publication Date 05/14/25 Single Vaccine 24 Eligibility Eligibility Date Funding Source Not [facility] Eligible 05/14/25 Private Coding Level of Care Code Est Pt Level 3 (20390) Est Pt Prev Care >65y(29065) Diagnoses Encounter for general adult medical examination with abnormal findings Z00.01 Memory changes R41.3 Foot pain, right M79.671 Lipid disorder E78.9 Pre-diabetes R73.03 Other specified hypothyroidism E03.8 Class 1 obesity due to excess calories without serious comorbidity with body mass index (BMI) of 33.0 to 33.9 in adult E66.09; Z68.33 Body mass index: BMI 33.0-33.9 Obesity classification: adult class 1 (BMI 30 - 34.9) Serious obesity comorbidity presence: without serious comorbidity Vitamin D deficiency E55.9 Chronic GERD K21.9 Primary osteoarthritis of both knees M17.0 Osteoarthritis type: primary Assessment & Plan Assessment & Plan (1) Encounter for general adult medical examination with abnormal findings: Code(s): Z00.01 - Encounter for general adult medical examination with abnormal findings Category: Medical (2) Memory changes: Code(s): R41.3 - Other amnesia Category: Medical (3) Foot pain, right: Code(s): M79.671 - Pain in right foot Category: Medical (4) Lipid disorder: Code(s): E78.9 - Disorder of lipoprotein metabolism, unspecified Category: Medical (5) Pre-diabetes: Code(s): R73.03 - Prediabetes Category: Medical (6) Other specified hypothyroidism: Code(s): E03.8 - Other specified hypothyroidism Category: Medical (7) Obesity due to excess calories: Code(s): E66.09 - Other obesity due to excess calories Category: Medical Qualifiers: Body mass index: BMI 33.0-33.9 Obesity classification: adult class 1 (BMI 30 - 34.9) Serious obesity comorbidity presence: without serious comorbidity Qualified Code(s): E66.09 - Other obesity due to excess calories; Z68.33 - Body mass index [BMI] 33.0-33.9, adult (8) Vitamin D deficiency: Code(s): E55.9 - Vitamin D deficiency, unspecified Category: Medical (9) Chronic GERD: Code(s): K21.9 - Gastro-esophageal reflux disease without esophagitis Category: Medical (10) Osteoarthritis of knees, bilateral: Code(s): M17.0 - Bilateral primary osteoarthritis of knee Category: Medical Qualifiers: Osteoarthritis type: primary Qualified Code(s): M17.0 - Bilateral primary osteoarthritis of knee Plan Complaining of having memory issue being more forgetful lately and would like to see a neurologist Hyperlipidemia: - The patient reports she stopped taking her cholesterol medication 15 days ago due to experiencing weakness. - She states her body feels fine since discontinuing the medication. - She has a family history of high cholesterol. Foot problems: - The patient has an orthopedic issue with her Rt foot, described as a pain in middle 2 toes - She notes some pain when putting her foot down. - Inspection reveals a fungal infection on a toenail of the right foot as well Weight management: - The patient has achieved significant weight loss of 28 pounds through dieting. - Her weight has decreased from 235 lbs to 210 lbs. Health Maintenance: - The patient has not had a mammogram and is due for one.she dont want it - She has already received the shingles vaccine. - She takes vitamin D3 and is due for lab checks of her vitamin D3 and B12 levels. - The patient requires refills for her thyroid medication. Medical History: - Hyperlipidemia - Arthritis - Hypothyroidism - Onychomycosis - Vitamin D deficiency - Sleep apnea - pain right foot - H/o achillis tendon rupture left side Medications - Cholesterol medication: self-discontinued 15 days ago due to weakness. - Vitamin D3 supplement: currently taking. - Thyroid medication: currently taking, requires refill. Patient Instructions - You will get a flu shot today. - Continue taking your Vitamin D3 supplement. - Get your blood tests done next month to check your cholesterol, vitamin B12, vitamin D3, and thyroid levels. - Follow up with the orthopedic doctor for your foot achillis tendon pain left side - You need to schedule a mammogram. how ever patient declined - Continue with your diet for weight management. - Follow up with your neurologist, for memory issue you are having. - Return for a follow-up appointment in four months. Orders: Orders Complete Blood Count Auto Diff Today E03.8 - Other specified hypothyroidism, E55.9 - Vitamin D deficiency, unspecified, E66.09 - Other obesity due to excess calories, E78.9 - Disorder of lipoprotein metabolism, unspecified, K21.9 - Gastro-esophageal reflux disease without esophagitis, M17.0 - Bilateral primary osteoarthritis of knee, R73.03 - Prediabetes, Z00.01 - Encounter for general adult medical examination with abnormal findings TSH reflex Free T4 Today E03.8 - Other specified hypothyroidism, E55.9 - Vitamin D deficiency, unspecified, E66.09 - Other obesity due to excess calories, E78.9 - Disorder of lipoprotein metabolism, unspecified, K21.9 - Gastro-esophageal reflux disease without esophagitis, M17.0 - Bilateral primary osteoarthritis of knee, R73.03 - Prediabetes, Z00.01 - Encounter for general adult medical examination with abnormal findings Lipid Panel Today E03.8 - Other specified hypothyroidism, E55.9 - Vitamin D deficiency, unspecified, E78.9 - Disorder of lipoprotein metabolism, unspecified, R73.03 - Prediabetes Vitamin B12 Today E03.8 - Other specified hypothyroidism, E55.9 - Vitamin D deficiency, unspecified, E78.9 - Disorder of lipoprotein metabolism, unspecified, R73.03 - Prediabetes Influenza [id number] Immunization Today Z23 - Encounter for immunization Hemoglobin A1c Today E03.8 - Other specified hypothyroidism, E55.9 - Vitamin D deficiency, unspecified, E66.09 - Other obesity due to excess calories, E78.9 - Disorder of lipoprotein metabolism, unspecified, K21.9 - Gastro-esophageal reflux disease without esophagitis, M17.0 - Bilateral primary osteoarthritis of knee, R73.03 - Prediabetes, Z00.01 - Encounter for general adult medical examination with abnormal findings MM tomosynthesis screening BI Today Z12.31 - Encounter for screening mammogram for malignant neoplasm of breast Comprehensive [employer]. Panel Fast Today E03.8 - Other specified hypothyroidism, E55.9 - Vitamin D deficiency, unspecified, E78.9 - Disorder of lipoprotein metabolism, unspecified, R73.03 - Prediabetes Vitamin D 25-OH (D2 and D3) Today E03.8 - Other specified hypothyroidism, E55.9 - Vitamin D deficiency, unspecified, E78.9 - Disorder of lipoprotein metabolism, unspecified, R73.03 - Prediabetes Referrals Podiatry Referral M79.671 - Pain in right foot Neurology Referral R41.3 - Other amnesia Medications: Refilled diclofenac sodium 3% 1 appl topical BID 200 grams 5RF 30 days levothyroxine 100 mcg PO DAILY 90 tabs 0RF 90 days cholecalciferol (vitamin D3) 50 mcg PO DAILY 90 caps 0RF
== END 2025-05-14 12:36 | disposition home or self-care (01) ==
PROVIDERS: PCP Internal Medicine; Visit Provider Internal Medicine
DX: Z00.00 Encounter for general adult medical examination without abnormal findings (principal); R41.3 Other amnesia; M79.671 Pain in right foot; E78.9 Disorder of lipoprotein metabolism, unspecified; R73.03 Prediabetes; E03.8 Other specified hypothyroidism; E66.09 Other obesity due to excess calories; Z68.33 Body mass index [BMI] 33.0-33.9, adult; E55.9 Vitamin D deficiency, unspecified; K21.9 Gastro-esophageal reflux disease without esophagitis; M17.0 Bilateral primary osteoarthritis of knee; Z23 Encounter for immunization

== ENCOUNTER → 2025-05-14 11:47 | Outpatient (BNVA) | payer SELFPAY | PROVIDERS: PCP Internal Medicine; Visit Provider Internal Medicine | DX: Z00.01 Encounter for general adult medical examination with abnormal findings (principal); Z23 Encounter for immunization; R41.3 Other amnesia; M79.671 Pain in right foot; E78.9 Disorder of lipoprotein metabolism, unspecified; E03.8 Other specified hypothyroidism; R73.03 Prediabetes; E66.09 Other obesity due to excess calories; E55.9 Vitamin D deficiency, unspecified; K21.9 Gastro-esophageal reflux disease without esophagitis; M17.0 Bilateral primary osteoarthritis of knee; Z68.33 Body mass index [BMI] 33.0-33.9, adult | CPT/HCPCS: 90471; 90656; 99397 ==

== ENCOUNTER 2025-06-13 10:50 | Outpatient (AMB) | payer MEDICAID, SELFPAY ==
[2025-06-13 11:08] VITALS: BMI 31.6
--- NOTE | 2025-06-13 11:08 | MHC.OFFVIS ---
Vital Signs 06/13/25 11:08 Height 5 ft 2 in Weight 173 lb BMI 31.6 Intake Visit Reasons: Right foot pain Intake Note: Husam is a 64year old female who presents today as a new patient for an evaluation of her right foot pain. The pain is located on her 2nd and 3rd toe of the right foot and has been going on for 6-7 months. She has previously completed a steroid injection in between her toes about 1 year ago and has found that this had helped her significantly. Patient is not currently treating her toe pain at this time. No current X-rays of her right foot done Allergies No Known Allergies (No Known Allergies*) Allergy (Verified 06/13/25 11:11) HPI Comments Details: Chief Complaint The patient presents with a complaint of constant pain in her right foot. History of Present Illness The patient is a 64 year old female past medical history of hypothyroidism, hyperlipidemia, and bilateral knee arthritis presenting for evaluation of right foot pain. She reports constant pain localized to the area of the third and fourth toes of her right foot. She denies any associated burning sensations currently however does report burning when the pain is bad. She reports no history of injury or falls related to this pain. She received 3 injections for a similar issue at the same location about 1.5 years ago which resolved her pain. Additionally, the patient has a history of a left Achilles tendon tear/rupture in December which was treated conservatively. The patient states she was told she has 'arthritis affecting her whole body', but primarily experiences it in her knees. She previously saw an transition of care specialist who recommended surgery, but she declined it at the time. She had received one injection for her knees. She has had significant weight loss, going from 235 pounds to her current weight of 173 pounds, which she is hoping helps relieve her knee pain. Her other medical history includes hypothyroidism, for which she takes medication. She has no history of diabetes. Medical History: - Arthritis, primarily affecting the knees - Hypothyroidism, medically managed - History of left Achilles tendon injury in December - History of right foot pain treated with an injection 1.5 years ago Social History: - History of significant weight loss from 235 lbs to 173 lbs. [facility] Social History Housing: House Alcohol intake: never Patient Tobacco Use Status: Never used Tobacco e-Cigarette/Vaping Use: Never Used service: No Current occupational status: unemployed Cognitive needs: No Hearing needs: No Vision needs: No Review of Systems Const All systems reviewed & are unremarkable except as noted in HPI and below Physical Exam Exam Exam: Diagnostic results Pathology results Physical Exam - Right Foot: Tenderness to palpation at the plantar aspect between the third and fourth metatarsal heads. - Negative Rainer's sign, as a squeeze test of the forefoot did not elicit pain. - Musculoskeletal: Plantarflexion of the left foot was noted to be weaker compared to the right. Vital Signs: BMI result Body Mass Index 31.6 Extrem Other: *Bilateral Lower Extremity Focused Exam Vascular: DP/PT 2/4, CFT less than 3 seconds all digits, temperature gradient warm to cool. No pedal edema. There is moderate left Achilles thickening with mild edema. Derm: No open wounds or lacerations, no clinical signs of infection Neuro: Negative Tinel sign to bilateral lower extremities MSK: Moderate tenderness on palpation of the plantar 3rd interspace with rainer's click No pain on forefoot squeeze or range of motion of the 3rd and 4th digits, no pain to the plantar sulcus of the 3rd and 4th digits. Left Achilles tendon palpable thickening with tenderness on palpation. Plantar flexion strength 4+/5 left ankle. Office Procedures AMB Joint Injection/Aspir Pod Joint Injection/Aspiration Podiatry: Procedure: Steroid injection Location: Right 3rd interspace Medication: 1.5cc 0.5% bupivicaine, 1cc dexamethasone, 0.5cc kenalog? Description: The [] was prepped using alcohol. A steroid injection was administered using sterile technique. The site was dressed using a band-aid. Post-procedure Instructions: The patient was instructed to apply ice to the injection site. The patient was advised to call the office if there are signs or symptoms of worsening pain, infection, or steroid flare. 45219 RT - Ortiz's Neuroma Injection RT Procedure code (CPT) selection complete Office Meds triamcinolone acetonide 40 mg/mL suspension for injection Performing Provider: Zac Schmitt DPM Performing Location: [facility] – [place] [facility] Administered by: Zac Schmitt DPM on 06/13/25 11:54 Dose Route Admin Location Dispensed Lot Number Expiration Date [facility] [employer] 20 mg intra-articular 1 mL [id number] [employer] Total Dispensed Waste 1 mL 50 % dexamethasone sodium phosphate 4 mg/mL injection solution Performing Provider: Zac Schmitt DPM Performing Location: [facility] – [place] [facility] Administered by: Zac Schmitt DPM on 06/13/25 11:54 Dose Route Admin Location Dispensed Lot Number Expiration Date [facility] [employer] 4 mg intra-articular 1 mL [id number] [employer] Total Dispensed Waste 1 mL 0 % bupivacaine (PF) 0.5 % (5 mg/mL) injection solution Performing Provider: Zac Schmitt DPM Performing Location: [facility] – [place] [facility] Administered by: Zac Schmitt DPM on 06/13/25 11:54 Dose Route Admin Location Dispensed Lot Number Expiration Date [facility] [employer] 2 mL intra-articular 10 mL [id number] [employer] Total Dispensed Waste 10 mL 80 % Results Reviewed Results Reviewed: X-ray Read: 12/24/2024 X-ray left ankle 3 views (AP, [place]ise, Lateral) reviewed which shows calcified bodies 1.8cm proximal from the calcaneus, large insertional Achilles spur. I personally reviewed the imaging and my findings are listed above. X-ray Read: 12/24/2024 X-ray left foot 3 views (AP, [place], Lateral) reviewed which shows joint space narrowing of the 2nd and 3rd tarsometatarsal joints I personally reviewed the imaging and my findings are listed above. Assessment & Plan Assessment & Plan (1) Achilles rupture, left: Code(s): S86.012A - Strain of left Achilles tendon, initial encounter Category: Medical Qualifiers: Encounter type: initial encounter Qualified Code(s): S86.012A - Strain of left Achilles tendon, initial encounter Plan: Patient has a history of left Achilles tear/rupture, she is still experiencing pain when ambulating. She is referred for left ankle MRI to evaluate for persistent tear. Patient may require MRI to plan for surgical debridement/repair. Referred for physical therapy (2) Ortiz's neuroma of right foot: Code(s): G57.61 - Lesion of plantar nerve, right lower limb Category: Medical Plan: The differential diagnosis includes neuroma or capsulitis. An injection was administered to the right 3rd interspace after obtaining consent. An order has been placed for an X-ray of the right foot to be done at [facility] – [place] Recommended Powerstep orthotics with a metatarsal pad to reduce pressure on the forefoot. Follow-up is scheduled in 3-4 weeks to assess the effectiveness of the injection, with the possibility of a second injection if pain persists. May require an MRI in the future due to persistent chronic pain (3) Arthritis of foot, left: Code(s): M19.072 - Primary osteoarthritis, left ankle and foot Category: Medical Plan: Reviewed left foot x-ray which shows 2nd and 3rd tarsometatarsal joint arthritis Rx Medrol Dosepak. Counseled the patient on potential side effects, including elevated blood sugar, sleep disturbances, and GI upset, advising to take the medication with food in the morning. Plan Counseling The patient was counseled on the use of shoe inserts with a metatarsal pad, advising her to wear them gradually, starting with one hour on the first day and increasing the duration incrementally to avoid discomfort. She was informed that the therapeutic effect of the steroid injection in her foot may take three to four days to become fully apparent. Regarding the prescribed oral steroid pack for arthritis, she was advised about the one-week tapering dosage. Potential side effects, including sleep disturbances and stomach pain, were discussed, with instructions to take the medication in the morning with food to mitigate these issues. It was explained that since she is not diabetic, the risk of high blood sugar is less of a concern. The patient was also encouraged to revisit her orthopedic doctor to discuss non-surgical options for her knee arthritis, such as different types of injections including steroids or gel. Recommendations: - Go to the [facility] to get an X-ray of your right foot. - You will receive a call to schedule an MRI of your left foot at [facility]. - Begin physical therapy to help strengthen your left ankle - After the foot injection, you can take Tylenol for pain and apply an ice pack to the area. - It may take 3-4 days for the right foot injection to work fully. - Buy shoe inserts that have a metatarsal pad for extra padding in the front. Wear them for one hour the first day, two hours the second day, and so on, to get used to them. - Take the prescribed steroid pill pack for your left foot arthritis. You will take 6 pills on day one, then 5, then 4, and so on for six days. Always take the pills in the morning with food. Orders: Orders AMB Joint Injection/Aspiration Podiatry Today G57.80 - Other specified mononeuropathies of unspecified lower limb PT Evaluation and Treatment Today S86.012A - Strain of left Achilles tendon, initial encounter MR ankle LT wo con Today M76.62 - Achilles tendinitis, left leg, S86.019A - Strain of unspecified Achilles tendon, initial encounter Medications: New methylprednisolone (Medrol (Ten)) Take 6 tablets on day 1, 5 tablets on day 2, 4 tablets on day 3, 3 tablets on day 4, 2 tablets on day 5, and 1 tablet on day 6. 4 mg PO PER PKG DIR 21 ea 0RF achilles tendinitis M76.62 - Achilles tendinitis, left leg Coding Level of Care Code New Pt Level 4 (45704) Diagnoses Rupture of left Achilles tendon, initial encounter S86.012A Encounter type: initial encounter Ortiz's neuroma of right foot G57.61 Arthritis of foot, left M19.072 CPT Codes Joint injectio/aspiration Podiatry - Joint Injection POD8: 62094 RT - Ortiz's Neuroma Injection RT ([id number]) Time Spent (min) 30
== END 2025-06-13 11:35 | disposition home or self-care (01) ==
LOC: HO.HPODS 10:52
PROVIDERS: PCP Internal Medicine; Visit Provider Student in an Organized Health Care Education/Training Program
DX: S86.012A Strain of left Achilles tendon, initial encounter (principal); G57.61 Lesion of plantar nerve, right lower limb; M19.072 Primary osteoarthritis, left ankle and foot; G57.80 Other specified mononeuropathies of unspecified lower limb
CPT/HCPCS: 64455; 99204

== ENCOUNTER → 2025-06-13 10:50 | Outpatient (BNVA) | payer MEDICAID, SELFPAY | PROVIDERS: PCP Internal Medicine; Visit Provider Student in an Organized Health Care Education/Training Program | DX: S86.012A Strain of left Achilles tendon, initial encounter (principal); G57.61 Lesion of plantar nerve, right lower limb; M19.072 Primary osteoarthritis, left ankle and foot | CPT/HCPCS: 64455; 99202; J0665; J1100; J3301 ==

== ENCOUNTER 2025-07-02 10:09 | Outpatient (REF) | payer MEDICAID, SELFPAY ==
[2025-07-02 13:44] LABS: MANUAL DIFF FLAG NO
[2025-07-02 13:58] LABS: Hematocrit 40.4 % (37.0-47.0); Hemoglobin 13.2 g/dl (12.0-16.0); Imm Gran Abs Auto 0.00 X10*3/uL (0.00-0.03); Imm Gran Pct Auto 0.0 % (0.0-0.4); Lymphocytes Absolute Auto 1.9 X10*3/uL (1.2-4.9); Mean Corpuscular HGB Conc 32.7 g/dl (31.0-35.0); Mean Corpuscular Hemoglobin 30.1 pg (27.0-33.0); Mean Corpuscular Volume 92.2 fL (80.0-98.0); NRBC Abs Auto 0.000 X10*3/uL (0.0-0.012); NRBC Pct Auto 0.0 /100WBC (0.0-0.2); Platelet Count 177 X10*3/uL (160-400); Red Blood Count 4.38 X10*6/uL (4.20-5.50); White Blood Count 3.9 X10*3/uL (4.8-10.8)
[2025-07-02 14:56] LABS: Alanine Aminotransferase 14 U/L (0-31); Albumin Level 4.3 g/dL (3.5-5.0); Alkaline Phosphatase 61 U/L (39-117); Anion Gap 10 (12-20); Aspartate Amino Transferase 23 U/L (5-31); Blood Urea Nitrogen 14 mg/dL (9-16); Calcium 10.4 mg/dL (8.4-10.2); Carbon Dioxide 29 mmol/L (22-29); Chloride 107 mmol/L (96-108); Cholesterol 221 mg/dL (<200); Estimated Glomerular Filt Rate > 60; HDL Cholesterol 51 mg/dL (>40); Potassium 3.9 mmol/L (3.3-5.1); Sodium 142 mmol/L (135-145); Total Protein 6.6 g/dL (6.5-8.0); Triglycerides 117 mg/dL (<150)
[2025-07-02 15:21] LABS: Vitamin B12 > 2000 pg/mL (200-900)
== END 2025-07-02 10:10 ==
LOC: HO.HMGCLDS 10:09
PROVIDERS: PCP Internal Medicine; Visit Provider Internal Medicine
DX: Z00.00 Encounter for general adult medical examination without abnormal findings (principal); E78.9 Disorder of lipoprotein metabolism, unspecified; R73.03 Prediabetes; E03.8 Other specified hypothyroidism; E55.9 Vitamin D deficiency, unspecified; K21.9 Gastro-esophageal reflux disease without esophagitis; M17.0 Bilateral primary osteoarthritis of knee; E66.09 Other obesity due to excess calories
CPT/HCPCS: 36415; 80053; 80061; 82306; 82607; 83036; 84443; 85025